=== PATIENT | male | born 1940 | race American Indian/Alaskan Native ===

== ENCOUNTER 2020-08-20 16:36 | Observation (INO) | payer MEDICARE ==
--- NOTE | 2020-08-20 19:40 | Emergency Department Report ---
HPI - General Chief Complaint: Altered Mental Status Time Seen by Provider: 08/20/20 19:14 - HPI HPI: This is a 79-year-old -[place] male presents to the emergency department via EMS from his [facility] with a complaint of abnormal behavior. Per EMS, the patient was apparently given a breathing treatment for some signs of shortness of breath and he became very confused afterwards. The paperwork sent by the facility states that he has a history of vascular dementia without behavioral disturbance, previous CVA with left-sided hemiparesis, [id number] diabetes, COPD, peripheral vascular disease, chronic kidney disease not on hemodialysis, hypertension, BPH, anemia and gout. The patient himself is currently confused, AAO x0, and is unable to provide any history or prearrival information. ED Past Medical Hx - Past Medical History Hx Hypertension: Yes Hx CVA: Yes Hx Diabetes: Yes Hx Arthritis: Yes Hx Asthma: Yes Hx Dementia: Yes - Surgical History Additional Surgical History: Pt. does not recall - Social History Smoking Status: Never Smoker - Medications Home Medications: Home Medications Medication Instructions Recorded Confirmed Last Taken Type Simvastatin 20 mg PO QHS 04/23/13 06/19/16 04/22/13 History Clopidogrel [Plavix] 75 mg PO QDAY #30 tablet NS 05/23/13 06/19/16 Unknown Rx donepeziL [Aricept] 10 mg PO QDAY 02/28/16 06/19/16 Unknown History cloNIDine [Catapres] 0.1 mg PO Q12HR #60 tablet 03/01/16 06/19/16 Unknown Rx hydrALAZINE [Apresoline TAB] 100 mg PO Q8H #90 tab 03/01/16 06/19/16 Unknown Rx Benzonatate [Tessalon Perles] 100 mg PO Q6HR PRN #3 capsule 06/25/16 Unknown Rx Ipratropium/Albuterol Sulfate 1 ampul IH Q6HRT ampul.neb 06/25/16 Unknown Rx [DUONEB *Not for PRN Use*] amLODIPine 10 mg PO DAILY tablet 06/25/16 Unknown Rx ED Review of Systems ROS: Stated complaint: ABNORMAL BEHAVIOR/HYACINTH Other details as noted in HPI Comment: Unobtainable due to pts medical conditions Physical Exam - Physical Exam Vital Signs: Vital Signs 08/20/20 18:57 Temperature 97.3 F L Pulse Rate 96 H Respiratory 13 Rate Blood Pressure 167/93 [Left] O2 Sat by Pulse 99 Oximetry Physical Exam: GENERAL: The patient is well-developed. HENT: Normocephalic. Atraumatic. Patient has moist mucous membranes. EYES: Extraocular motions are intact. Pupils equal reactive to light bilaterally. NECK: Supple. Trachea is midline. CHEST/LUNGS: Clear to auscultation. There is no respiratory distress noted. HEART/CARDIOVASCULAR: Regular. There is no tachycardia. There is no murmur. ABDOMEN: Abdomen is soft, nontender. Patient has normal bowel sounds. There is no abdominal distention. SKIN: Skin is warm and dry. NEURO: The patient is awake but confused. Follows some commands. Withdraws to painful stimuli. MUSCULOSKELETAL: There is no tenderness or deformity. ED Course Vital Signs 08/20/20 18:57 Temperature 97.3 F L Pulse Rate 96 H Respiratory 13 Rate Blood Pressure 167/93 [Left] O2 Sat by Pulse 99 Oximetry ED Medical Decision Making - Lab Data Result diagrams: 08/20/20 19:56 08/20/20 19:56 Lab Results 08/20/20 08/20/20 08/20/20 Range/Units 19:56 19:56 19:56 WBC 11.8 H (4.5-11.0) K/mm3 RBC 4.08 (3.65-5.03) M/mm3 Hgb 12.1 (11.8-15.2) gm/dl Hct 37.3 (35.5-45.6) % MCV 91 (84-94) fl MCH 30 (28-32) pg MCHC 32 (32-34) % RDW 16.8 H (13.2-15.2) % Plt Count 427 (140-440) K/mm3 Lymph % (Auto) 12.8 L (13.4-35.0) % [place] % (Auto) 4.3 (0.0-7.3) % Eos % (Auto) 0.0 (0.0-4.3) % Baso % (Auto) 0.2 (0.0-1.8) % Lymph # (Auto) 1.5 (1.2-5.4) K/mm3 [place] # (Auto) 0.5 (0.0-0.8) K/mm3 Eos # (Auto) 0.0 (0.0-0.4) K/mm3 Baso # (Auto) 0.0 (0.0-0.1) K/mm3 Seg Neutrophils % 82.7 H (40.0-70.0) % Seg Neutrophils # 9.8 H (1.8-7.7) K/mm3 PT 13.4 (12.2-14.9) Sec. INR 1.03 (0.87-1.13) APTT 29.2 (24.2-36.6) Sec. Sodium 138 (137-145) mmol/L Potassium 5.5 H (3.6-5.0) mmol/L Chloride 104.6 (98-107) mmol/L Carbon Dioxide 17 L (22-30) mmol/L Anion Gap 22 mmol/L BUN 96 H (9-20) mg/dL Creatinine 3.4 H (0.8-1.3) mg/dL Estimated GFR 21 ml/min BUN/Creatinine Ratio 28 % Glucose 155 H (75-100) mg/dL Calcium 9.4 (8.4-10.2) mg/dL Total Bilirubin 0.20 (0.1-1.2) mg/dL AST 12 (5-40) units/L ALT 21 (7-56) units/L Alkaline Phosphatase 50 (35-129) units/L Ammonia (25-60) umol/L Troponin T 0.064 H (0.00-0.029) ng/mL Total Protein 7.4 (6.3-8.2) g/dL Albumin 3.8 L (3.9-5) g/dL Albumin/Globulin Ratio 1.1 % Triglycerides 60 (2-149) mg/dL Cholesterol 185 (50-199) mg/dL LDL Cholesterol Direct 116 (50-130) mg/dL HDL Cholesterol 61 H (40-59) mg/dL Cholesterol/HDL Ratio 3.03 % TSH (0.270-4.200) mlU/mL Plasma/Serum Alcohol (0-0.07) % 08/20/20 08/20/20 08/20/20 Range/Units 19:56 19:56 19:56 WBC (4.5-11.0) K/mm3 RBC (3.65-5.03) M/mm3 Hgb (11.8-15.2) gm/dl Hct (35.5-45.6) % MCV (84-94) fl MCH (28-32) pg MCHC (32-34) % RDW (13.2-15.2) % Plt Count (140-440) K/mm3 Lymph % (Auto) (13.4-35.0) % [place] % (Auto) (0.0-7.3) % Eos % (Auto) (0.0-4.3) % Baso % (Auto) (0.0-1.8) % Lymph # (Auto) (1.2-5.4) K/mm3 [place] # (Auto) (0.0-0.8) K/mm3 Eos # (Auto) (0.0-0.4) K/mm3 Baso # (Auto) (0.0-0.1) K/mm3 Seg Neutrophils % (40.0-70.0) % Seg Neutrophils # (1.8-7.7) K/mm3 PT (12.2-14.9) Sec. INR (0.87-1.13) APTT (24.2-36.6) Sec. Sodium (137-145) mmol/L Potassium (3.6-5.0) mmol/L Chloride (98-107) mmol/L Carbon Dioxide (22-30) mmol/L Anion Gap mmol/L BUN (9-20) mg/dL Creatinine (0.8-1.3) mg/dL Estimated GFR ml/min BUN/Creatinine Ratio % Glucose (75-100) mg/dL Calcium (8.4-10.2) mg/dL Total Bilirubin (0.1-1.2) mg/dL AST (5-40) units/L ALT (7-56) units/L Alkaline Phosphatase (35-129) units/L Ammonia 47.0 (25-60) umol/L Troponin T (0.00-0.029) ng/mL Total Protein (6.3-8.2) g/dL Albumin (3.9-5) g/dL Albumin/Globulin Ratio % Triglycerides (2-149) mg/dL Cholesterol (50-199) mg/dL LDL Cholesterol Direct (50-130) mg/dL HDL Cholesterol (40-59) mg/dL Cholesterol/HDL Ratio % TSH 1.250 (0.270-4.200) mlU/mL Plasma/Serum Alcohol < 0.01 (0-0.07) % - Radiology Data Radiology results: report reviewed, image reviewed interpreted by me: Chest x-ray does not show any acute process. There are no pleural effusions, obvious pneumonia and there is no pneumothorax. No significant cardiomegaly. NONENHANCED CT SCAN OF THE HEAD: INDICATION / CLINICAL INFORMATION: 79 years Male; Altered mental status. TECHNIQUE: Routine CT head without contrast. All CT scans at this location are performed using CT dose reduction for ALARA by means of automated exposure control. COMPARISON: CT scan of the head from 06/21/2016 and MR scan of the brain from 06/24/2016 FINDINGS: BRAIN / INTRACRANIAL CONTENTS: No acute hemorrhage, mass effect, midline shift, hydrocephalus, or acute, large territorial infarct. Volume loss in the hippocampi bilaterally and in the cuneus bilaterally. Moderate cortical involution with Periventricular low attenuation areas due to chronic small vessel disease CRANIOCERVICAL JUNCTION: No significant abnormality. ORBITS: No significant abnormality of visualized orbits. SINUSES / MASTOIDS: Mucosal disease in the left the ethmoid air cells ADDITIONAL FINDINGS: None. IMPRESSION: No acute focal parenchymal lesion in the brain Significant volume loss in the hippocampi and cuneus bilaterally - Medical Decision Making This patient presented from his senior living facility with the complaint of altered mental status after having a breathing treatment. Apparently the patient received a breathing treatment secondary to shortness of breath. However, since arrival to the emergency department, the patient does not appear short of breath or in any respiratory distress. He does have some history of vascular dementia that is listed as being without behavioral disturbances. I do not know what the patient's baseline mental status is, but he is AAO x0 on my initial examination. He will follow some commands but at times he is also a gitated and/or erratic. A CT scan of the head without contrast was performed that did not show any large territorial infarct, hemorrhage, or any other acute process. Chest x-ray does not show any pneumonia, pleural effusions, pneumothorax, focal consolidation, or any other acute process. The patient's labs shows some hyperkalemia with a potassium of 5.5, for which the patient was given a dose of Kayexalate. He has renal insufficiency consistent with his chronic kidney disease. The patient has a urinary tract infection, which combined with his vascular dementia, may be the reason for his behavioral disturbances and/or altered mental status. A urine culture has been sent to the patient has been given IV antibiotics. He will be admitted to the hospital for further evaluation and treatment was accepted for admission by the hospitalist, Dr. Monsivais. Critical Care Time: No Critical care attestation.: If time is entered above; I have spent that time in minutes in the direct care of this critically ill patient, excluding procedure time. ED Disposition Clinical Impression: Hyperkalemia Altered mental status Qualifiers: Altered mental status type: unspecified Qualified Code(s): R41.82 - Altered mental status, unspecified Hypertension Qualifiers: Hypertension type: essential hypertension Qualified Code(s): I10 - Essential (primary) hypertension Chronic kidney disease (CKD), stage III (moderate) Qualifiers: Chronic kidney disease stage 3 subtype: stage 3b (GFR 30-44) Qualified Code(s): N18.32 - Chronic kidney disease, stage 3b UTI (urinary tract infection) Qualifiers: Urinary tract infection type: acute cystitis Hematuria presence: without hematuria Qualified Code(s): N30.00 - Acute cystitis without hematuria Disposition: 09 OP ADMIT IP TO THIS HOSP Is pt being admited?: Yes Condition: Serious Time of Disposition: 21:49
[2020-08-20] MEDS ORDERED: ZIPRASIDONE MESYLATE 20 MG VIAL IM ONE (20:24)
--- NOTE | 2020-08-20 20:30 | XRay Report ---
CHEST 1 VIEW INDICATION: Altered mental status COMPARISON: None FINDINGS: SUPPORT DEVICES: None. HEART / MEDIASTINUM: No significant abnormality. LUNGS / PLEURA: No significant pulmonary or pleural abnormality. No pneumothorax. ADDITIONAL FINDINGS: IMPRESSION: 1. No acute cardiopulmonary disease Signer Name: Keshawn Pyle MD Signed: 08/20/2020 8:26 PM Workstation Name: [id number]
[2020-08-20 20:32] LABS: Basophils % (Auto) 0.2 % (0.0-1.8); Hematocrit 37.3 % (35.5-45.6); Hemoglobin 12.1 gm/dl (11.8-15.2); Lymphocytes # (Auto) 1.5 K/mm3 (1.2-5.4); Lymphocytes % (Auto) 12.8 % (13.4-35.0); Mean Corpuscular HGB Conc 32 % (32-34); Mean Corpuscular Volume 91 fl (84-94); Monocytes # (Auto) 0.5 K/mm3 (0.0-0.8); Monocytes % (Auto) 4.3 % (0.0-7.3); Platelet Count 427 K/mm3 (140-440); Red Blood Count 4.08 M/mm3 (3.65-5.03); Red Cell Distribution Width 16.8 % (13.2-15.2)
[2020-08-20 20:40] LABS: INR 1.03 (0.87-1.13)
[2020-08-20 20:41] LABS: Partial Thromboplastin Time 29.2 Sec. (24.2-36.6)
[2020-08-20 20:53] LABS: Albumin 3.8 g/dL (3.9-5); Calcium 9.4 mg/dL (8.4-10.2)
--- NOTE | 2020-08-20 21:13 | Cat Scan Report ---
NONENHANCED CT SCAN OF THE HEAD: INDICATION / CLINICAL INFORMATION: 79 years Male; Altered mental status. TECHNIQUE: Routine CT head without contrast. All CT scans at this location are performed using CT dos e reduction for ALARA by means of automated exposure control. COMPARISON: CT scan of the head from 06/21/2016 and MR scan of the brain from 06/24/2016 FINDINGS: BRAIN / INTRACRANIAL CONTENTS: No acute hemorrhage, mass effect, midline shift, hydrocephalus, or acu te, large territorial infarct. Volume loss in the hippocampi bilaterally and in the cuneus bilaterall y. Moderate cortical involution with Periventricular low attenuation areas due to chronic small vesse l disease CRANIOCERVICAL JUNCTION: No significant abnormality. ORBITS: No significant abnormality of visualized orbits. SINUSES / MASTOIDS: Mucosal disease in the left the ethmoid air cells ADDITIONAL FINDINGS: None. IMPRESSION: No acute focal parenchymal lesion in the brain Significant volume loss in the hippocampi and cuneus bilaterally Signer Name: Carlos Callahan MD Signed: 08/20/2020 9:08 PM Workstation Name: [id number]
[2020-08-20] MEDS ORDERED: SODIUM POLYSTYRENE 15 GM/60 ML ORAL LIQD PO ONE (21:28)
[2020-08-20 21:34] LABS: Chol/HDL Ratio 3.03 %
[2020-08-20] MEDS ORDERED: ACETAMINOPHEN 325 MG TAB PO PRN ×2 (23:26)
[2020-08-20] MEDS ORDERED: MORPHINE 2 MG/1 ML INJ IV PRN (23:26)
[2020-08-20] MEDS ORDERED: DEXTROSE 50% IN WATER (25GM) 50 ML SYRINGE IV PRN (23:26)
[2020-08-20] MEDS ORDERED: ONDANSETRON 4 MG/2 ML INJ IV PRN (23:26)
[2020-08-20] MEDS ORDERED: MAGNESIUM HYDROXIDE (MOM) ORAL LIQD UDC PO PRN (23:26)
--- NOTE | 2020-08-20 23:39 | History and Physical Report ---
History of Present Illness Date of examination: 08/20/20 Date of admission: 08/20/20 21:49 Chief complaint: Altered mental status History of present illness: 79-year-old -Filipino male with known history of dementia, diabetes mellitus, hypertension, history of stroke in the past who is a resident of [facility] brought into the emergency room today for changes in mental status. Patient was said to be getting some breathing treatment because of shortness of breath earlier today it thereafter became confused. Most of the history was gotten from the ER staff as patient is confused and cannot give a coherent history. Work-up in the emergency room today potassium was found to be 5.5 on the chemistry, EKG, chest x-ray, CT scan of the head were unremarkable. Patient however had elevated troponin of 0.064. Urinalysis revealed UTI. Patient has been admitted for changes in altered mental status, UTI and hyperkalemia. Past History Past Medical History: arthritis, diabetes, hypertension, hyperlipidemia, renal failure, stroke, other (Dementia) Past Surgical History: No surgical history Social history: no significant social history Family history: no significant family history Medications and Allergies Allergies Allergy/AdvReac Type Severity Reaction Status Date / Time No Known Allergies Allergy Unverified 04/23/13 16:35 Home Medications Medication Instructions Recorded Confirmed Last Taken Type Simvastatin 20 mg PO QHS 04/23/13 06/19/16 04/22/13 History Clopidogrel [Plavix] 75 mg PO QDAY #30 tablet NS 05/23/13 06/19/16 Unknown Rx donepeziL [Aricept] 10 mg PO QDAY 02/28/16 06/19/16 Unknown History cloNIDine [Catapres] 0.1 mg PO Q12HR #60 tablet 03/01/16 06/19/16 Unknown Rx hydrALAZINE [Apresoline TAB] 100 mg PO Q8H #90 tab 03/01/16 06/19/16 Unknown Rx Benzonatate [Tessalon Perles] 100 mg PO Q6HR PRN #3 capsule 06/25/16 Unknown Rx Ipratropium/Albuterol Sulfate 1 ampul IH Q6HRT ampul.neb 06/25/16 Unknown Rx [DUONEB *Not for PRN Use*] amLODIPine 10 mg PO DAILY tablet 06/25/16 Unknown Rx Active Meds: Active Medications Acetaminophen (Acetaminophen 325 Mg Tab) 650 mg PO Q4H PRN PRN Reason: Pain MILD(1-3)/Fever >100.5/CARRILLO Review of Systems ROS unobtainable: due to mental status Exam - Constitutional Vitals: Temp Pulse Resp BP Pulse Ox 97.3 F L 85 12 151/109 98 08/20/20 19:40 08/20/20 23:00 08/20/20 22:46 08/20/20 22:46 08/20/20 22:46 General appearance: Present: no acute distress, well-nourished - EENT Eyes: Present: PERRL, EOM intact. Absent: scleral icterus ENT: hearing intact, clear oral mucosa, dentition normal - Neck Neck: Present: supple, normal ROM - Respiratory Respiratory effort: normal Respiratory: bilateral: CTA - Cardiovascular Rhythm: regular Heart Sounds: Present: S1 & S2. Absent: gallop, systolic murmur, diastolic murmur, rub - Extremities Extremities: no ischemia, pulses intact, pulses symmetrical, No edema, normal temperature, normal color, Full ROM Peripheral Pulses: within normal limits - Abdominal General gastrointestinal: Present: soft, non-tender, non-distended, normal bowel sounds. Absent: mass - Integumentary Integumentary: Present: clear, warm, dry. Absent: rash - Musculoskeletal Musculoskeletal: strength equal bilaterally - Psychiatric Psychiatric: cooperative - Neurologic Neurologic: CNII-XII intact, no focal deficits, moves all extremities HEART Score - HEART Score Troponin: Troponin T 0.064 ng/mL (0.00-0.029) H 08/20/20 19:56 Results - Labs CBC & Chem 7: 08/21/20 01:06 08/21/20 01:06 Labs: Abnormal lab results 08/20/20 08/20/20 Range/Units 19:56 19:56 WBC 11.8 H (4.5-11.0) K/mm3 RDW 16.8 H (13.2-15.2) % Lymph % (Auto) 12.8 L (13.4-35.0) % Seg Neutrophils % 82.7 H (40.0-70.0) % Seg Neutrophils # 9.8 H (1.8-7.7) K/mm3 Potassium 5.5 H (3.6-5.0) mmol/L Carbon Dioxide 17 L (22-30) mmol/L BUN 96 H (9-20) mg/dL Creatinine 3.4 H (0.8-1.3) mg/dL Glucose 155 H (75-100) mg/dL Troponin T 0.064 H (0.00-0.029) ng/mL Albumin 3.8 L (3.9-5) g/dL HDL Cholesterol 61 H (40-59) mg/dL Assessment and Plan - Patient Problems (1) Altered mental status Current Visit: Yes Status: Acute Qualifiers: Altered mental status type: unspecified Qualified Code(s): R41.82 - Altered mental status, unspecified Plan to address problem: Possibly secondary to UTI however patient has an underlying history of dementia. Will monitor mental status. (2) Hyperkalemia Current Visit: Yes Status: Acute Plan to address problem: She has had Kayexalate. Will monitor potassium level. (3) Chronic kidney disease (CKD), stage III (moderate) Current Visit: Yes Status: Chronic Qualifiers: Chronic kidney disease stage 3 subtype: stage 3b (GFR 30-44) Qualified Code(s): N18.32 - Chronic kidney disease, stage 3b Plan to address problem: Consult placed to nephrology for follow-up. (4) HTN (hypertension) Current Visit: Yes Status: Chronic Qualifiers: Hypertension type: essential hypertension Qualified Code(s): I10 - Essential (primary) hypertension Plan to address problem: We will resume routine home medications and monitor vital signs closely. (5) Vascular dementia Current Visit: No Status: Chronic Plan to address problem: We will resume routine medications. (6) Elevated troponin Current Visit: Yes Status: Acute Plan to address problem: Possibly secondary to the chronic kidney disease. (7) UTI (urinary tract infection) Current Visit: Yes Status: Acute Qualifiers: Urinary tract infection type: acute cystitis Hematuria presence: without hematuria Qualified Code(s): N30.00 - Acute cystitis without hematuria Plan to address problem: Patient placed on empiric IV antibiotics. (8) DVT prophylaxis Current Visit: Yes Status: Acute Plan to address problem: Patient placed on subcutaneous heparin. (9) Full code status Current Visit: Yes Status: Acute Plan to address problem: Patient is a full code.
[2020-08-20 23:58] LABS: Amphetamine Screen,Urine PRESUMPTIVE NEGATIVE; Bacteria,Urine 2+ /HPF (Negative); Benzodiazepines Screen,Urine PRESUMPTIVE NEGATIVE; Bilirubin,Urine NEG (Negative); Blood,Urine LG (Negative); Cannabinoid Screen,Urine PRESUMPTIVE NEGATIVE; Cocaine Screen,Urine PRESUMPTIVE NEGATIVE; Color,Urine Yellow (Yellow); Methadone Screen,Urine PRESUMPTIVE NEGATIVE; Mucus,Urine FEW /HPF; Opiate Screen,Urine PRESUMPTIVE NEGATIVE; Urobilinogen,Urine < 2.0 mg/dL (<2.0)
[2020-08-21] MEDS ORDERED: cefTRIAXone/NS 1 GM/50 ML 1 GM/50 ML BAG IV ONE (00:07)
[2020-08-21 02:09] LABS: Basophils % (Auto) 0.1 % (0.0-1.8); Hematocrit 35.9 % (35.5-45.6); Hemoglobin 11.5 gm/dl (11.8-15.2); Lymphocytes # (Auto) 1.7 K/mm3 (1.2-5.4); Lymphocytes % (Auto) 11.6 % (13.4-35.0); Mean Corpuscular HGB Conc 32 % (32-34); Mean Corpuscular Volume 91 fl (84-94); Monocytes # (Auto) 1.1 K/mm3 (0.0-0.8); Monocytes % (Auto) 7.5 % (0.0-7.3); Platelet Count 383 K/mm3 (140-440); Red Blood Count 3.95 M/mm3 (3.65-5.03); Red Cell Distribution Width 17.2 % (13.2-15.2)
[2020-08-21 02:27] LABS: Calcium 9.4 mg/dL (8.4-10.2)
[2020-08-21] MEDS: HEPARIN 5,000 UNIT/1 ML VIAL SUB-Q SCH ×3 (05:28→21:30)
[2020-08-21] MEDS ORDERED: INSULIN LISPRO 100 UNIT/ML VIAL 3 mL SUB-Q SCH (07:30)
[2020-08-21] MEDS ORDERED: SODIUM POLYSTYRENE 15 GM/60 ML ORAL LIQD PO ONE (07:42)
[2020-08-21] MEDS: INSULIN LISPRO 100 UNIT/ML VIAL 3 mL SUB-Q SCH ×4 (08:03→21:30)
[2020-08-21 08:32] LABS: Basophils % (Auto) 0.1 % (0.0-1.8); Eosinophils % (Auto) 0.1 % (0.0-4.3); Hematocrit 35.3 % (35.5-45.6); Hemoglobin 11.4 gm/dl (11.8-15.2); Lymphocytes # (Auto) 1.7 K/mm3 (1.2-5.4); Lymphocytes % (Auto) 11.2 % (13.4-35.0); Mean Corpuscular HGB Conc 32 % (32-34); Mean Corpuscular Volume 89 fl (84-94); Monocytes # (Auto) 1.3 K/mm3 (0.0-0.8); Platelet Count 410 K/mm3 (140-440); Red Blood Count 3.96 M/mm3 (3.65-5.03); Red Cell Distribution Width 17.3 % (13.2-15.2)
[2020-08-21 08:45] LABS: INR 1.05 (0.87-1.13)
[2020-08-21 09:00] LABS: Calcium 9.1 mg/dL (8.4-10.2)
[2020-08-21] MEDS ORDERED: PATIROMER CALCIUM SORBITEX 8.4 GM PO SCH (09:00)
[2020-08-21] MEDS ORDERED: SODIUM POLYSTYRENE 15 GM/60 ML ORAL LIQD PO SCH (10:00)
[2020-08-21] MEDS: SODIUM CHLORIDE 0.9% 1000 ML 1,000 ML IV SCH ×2 (10:27→21:30)
[2020-08-21] MEDS: cefTRIAXone/NS 1 GM/50 ML 1 GM/50 ML BAG IV SCH (10:28)
--- NOTE | 2020-08-21 13:18 | Consultation ---
History of Present Illness - Reason for Consult acute renal failure - History of Present Illness Pleasant 79-year-old -Ang[place] male, with a history of vascular dementia, hypertension, diabetes, who is [facility] resident, presented to the emergency room department secondary to worsening mental status. Nephrology is consulted this time for acute kidney injury and hyperkalemia noted on initial laboratory findings. His urinalysis was concerning for underlying urinary tract infection which can likely be causing his aforementioned mentation changes. However he does have a history of dementia at baseline. He is not a good historian and much of the history was obtained through reviewing the records as well as discussing with medical staff. Past History Past Medical History: arthritis, diabetes, hypertension, hyperlipidemia, renal failure, stroke, other (Dementia) Past Surgical History: No surgical history Social history: no significant social history Family history: no significant family history Medications and Allergies Allergies Allergy/AdvReac Type Severity Reaction Status Date / Time No Known Allergies Allergy Unverified 04/23/13 16:35 Home Medications Medication Instructions Recorded Confirmed Last Taken Type Simvastatin 20 mg PO QHS 04/23/13 06/19/16 04/22/13 History Clopidogrel [Plavix] 75 mg PO QDAY #30 tablet NS 05/23/13 06/19/16 Unknown Rx donepeziL [Aricept] 10 mg PO QDAY 02/28/16 06/19/16 Unknown History cloNIDine [Catapres] 0.1 mg PO Q12HR #60 tablet 03/01/16 06/19/16 Unknown Rx hydrALAZINE [Apresoline TAB] 100 mg PO Q8H #90 tab 03/01/16 06/19/16 Unknown Rx Benzonatate [Tessalon Perles] 100 mg PO Q6HR PRN #3 capsule 06/25/16 Unknown Rx Ipratropium/Albuterol Sulfate 1 ampul IH Q6HRT ampul.neb 06/25/16 Unknown Rx [DUONEB *Not for PRN Use*] amLODIPine 10 mg PO DAILY tablet 06/25/16 Unknown Rx Active Meds: Active Medications Acetaminophen (Acetaminophen 325 Mg Tab) 650 mg PO Q4H PRN PRN Reason: Pain MILD(1-3)/Fever >100.5/CARRILLO Dextrose (Dextrose 50% In Water (25gm) 50 Ml Syringe) 0 ml IV Q30MIN PRN; Protocol PRN Reason: Hypoglycemia Heparin Sodium (Porcine) (Heparin 5,000 Unit/1 Ml Vial) 5,000 unit SUB-Q Q8HR [facility] Last Admin: 08/21/20 13:08 Dose: 5,000 unit Documented by: Ceftriaxone Sodium (Rocephin/Ns 1 Gm/50 Ml) 1 gm in 50 mls @ 100 mls/hr IV Q24HR [facility]; Protocol Last Admin: 08/21/20 10:28 Dose: 100 mls/hr Documented by: Sodium Chloride (Nacl 0.9% 1000 Ml) 1,000 mls @ 100 mls/hr IV DIRECT [facility] Last Admin: 08/21/20 10:27 Dose: 100 mls/hr Documented by: Insulin Human Lispro (Insulin Lispro 100 Unit/Ml Vial 3 Ml) 0 unit SUB-Q ACHS [facility]; Protocol Last Admin: 08/21/20 11:27 Dose: Not Given Documented by: Magnesium Hydroxide (Magnesium Hydroxide (Mom) Oral Liqd Udc) 30 ml PO Q4H PRN PRN Reason: Constipation Morphine Sulfate (Morphine 2 Mg/1 Ml Inj) 2 mg IV Q4H PRN PRN Reason: Pain, Moderate (4-6) Ondansetron HCl (Ondansetron 4 Mg/2 Ml Inj) 4 mg IV Q8H PRN PRN Reason: Nausea And Vomiting Sodium Chloride (Sodium Chloride 0.9% 10 Ml Flush Syringe) 10 ml IV BID [facility] Last Admin: 08/21/20 11:23 Dose: 10 ml Documented by: Sodium Chloride (Sodium Chloride 0.9% 10 Ml Flush Syringe) 10 ml IV PRN PRN PRN Reason: LINE FLUSH Review of Systems ROS unobtainable: due to mental status Exam - Vital Signs Vital signs: Vital Signs Pulse Ox 98 08/20/20 18:48 - General Appearance General appearance: appears stated age, chronically ill EENT: ATNC Neck: Present: neck supple Respiratory: Clear to Ascultation Heart: regular Gastrointestinal: Present: normal Integumentary: no rash Neurologic: confused Musculoskeletal: Present: deferred Psychiatric: cooperative Results - Lab Results 08/21/20 07:51 08/21/20 07:51 Most recent lab results Calcium 9.1 mg/dL (8.4-10.2) 08/21/20 07:51 Assessment and Plan - Patient Problems (1) [id number] kidney injury Current Visit: Yes Status: Acute Plan to address problem: Patient likely has an acute on chronic kidney injury at this time secondary to underlying urinary tract infection. We will start on gentle IV fluids at 100 cc an hour of normal saline. Please ensure that antibiotics are dosed appropriate for his renal function. Please avoid all nephrotoxins and maintain mean arterial pressures above 65 mmHg. We will obtain a renal ultrasound along with urine electrolyte indices for further evaluation. (2) Hypertensive chronic kidney disease with stage 1 through stage 4 chronic kidney disease, or unspecified chronic kidney disease Current Visit: Yes Status: Acute Plan to address problem: Monitor on current regimen. (3) Type 2 diabetes mellitus with diabetic chronic kidney disease Current Visit: Yes Status: Acute Plan to address problem: Diabetes management primary attending (4) Hyperkalemia Current Visit: Yes Status: Acute Plan to address problem: Patient given dose of Kayexalate this morning with repeat labs noted to be showing improvement. Anticipate further improvement of potassium levels with increased distal sodium delivery via IV fluids. (5) UTI (urinary tract infection) Current Visit: Yes Status: Acute Qualifiers: Urinary tract infection type: acute cystitis Hematuria presence: without hematuria Qualified Code(s): N30.00 - Acute cystitis without hematuria Plan to address problem: Please ensure that antibiotics are dosed appropriate for his decreased renal function.
--- NOTE | 2020-08-21 14:21 | Progress Note ---
Assessment and Plan Assessment and plan: --- Acute metabolic encephalopathy Current Visit: Yes Status: Acute Qualifiers: Altered mental status type: unspecified Qualified Code(s): R41.82 - Altered mental status, unspecified Plan to address problem: Patient has a history of dementia and now comes in with confusion. CT head negative for any stroke Found to have UTI and is now on antibiotics --- Urinary tract infection Current Visit: No Status: Chronic Plan to address problem: Continue IV antibiotics Urine culture pending --Chronic kidney disease (CKD), stage III (moderate) Current Visit: Yes Status: Chronic Qualifiers: Chronic kidney disease stage 3 subtype: stage 3b (GFR 30-44) Qualified Code(s): N18.32 - Chronic kidney disease, stage 3b Plan to address problem: Consult placed to nephrology for follow-up. ---HTN (hypertension) Current Visit: Yes Status: Chronic Qualifiers: Hypertension type: essential hypertension Qualified Code(s): I10 - Essential (primary) hypertension Plan to address problem: We will resume routine home medications and monitor vital signs closely. --Vascular dementia Current Visit: No Status: Chronic Plan to address problem: We will resume routine medications. --Elevated troponin Current Visit: Yes Status: Acute Plan to address problem: Possibly secondary to the chronic kidney disease. Denies any chest pain --- Possibly has Parkinson's disease as he has parkinsonian facies and tremors Current Visit: No Status: Chronic Plan to address problem: Needs neurology follow-up on discharge ---DVT prophylaxis Current Visit: Yes Status: Acute Plan to address problem: Patient placed on subcutaneous heparin. --Full code status Current Visit: Yes Status: Acute Plan to address problem: Patient is a full code. History Interval history: Patient seen and examined at bedside He does not know why he is here. States he lives with spouse in [place] He is confused Labs reviewed Hospitalist Physical - Physical exam Narrative exam: VITAL SIGNS: Reviewed. GENERAL: Awake HEAD: No signs of head trauma. EYES: Pupils are equal. Extraocular motions intact. MOUTH: Oropharynx is normal. NECK: No adenopathy, no JVD. CHEST: Chest with diminished breath sounds bilaterally. No wheezes, rales, or rhonchi. CARDIAC: normal S1 and S2, without murmurs, gallops, or rubs. ABDOMEN: Soft, non tender and non distended. No rebound or guarding, and no masses palpated. Bowel Sounds normal. MUSCULOSKELETAL: No edema NEUROLOGIC EXAM: Awake but confused. Has intention tremor and expressionless face SKIN: No obvious lesions - Constitutional Vitals: Temp Pulse Resp BP Pulse Ox 98.4 F 87 20 150/87 97 08/21/20 08:09 08/21/20 08:09 08/21/20 08:09 08/21/20 08:09 08/21/20 12:02 HEART Score - HEART Score Troponin: Troponin T 0.076 ng/mL (0.00-0.029) H 08/21/20 07:51 Results - Labs CBC & Chem 7: 08/21/20 07:51 08/21/20 07:51 Labs: Laboratory Last Values WBC 14.9 K/mm3 (4.5-11.0) H 08/21/20 07:51 RBC 3.96 M/mm3 (3.65-5.03) 08/21/20 07:51 Hgb 11.4 gm/dl (11.8-15.2) L 08/21/20 07:51 Hct 35.3 % (35.5-45.6) L 08/21/20 07:51 MCV 89 fl (84-94) 08/21/20 07:51 MCH 29 pg (28-32) 08/21/20 07:51 MCHC 32 % (32-34) 08/21/20 07:51 RDW 17.3 % (13.2-15.2) H 08/21/20 07:51 Plt Count 410 K/mm3 (140-440) 08/21/20 07:51 Lymph % (Auto) 11.2 % (13.4-35.0) L 08/21/20 07:51 [place] % (Auto) 9.0 % (0.0-7.3) H 08/21/20 07:51 Eos % (Auto) 0.1 % (0.0-4.3) 08/21/20 07:51 Baso % (Auto) 0.1 % (0.0-1.8) 08/21/20 07:51 Lymph # (Auto) 1.7 K/mm3 (1.2-5.4) 08/21/20 07:51 [place] # (Auto) 1.3 K/mm3 (0.0-0.8) H 08/21/20 07:51 Eos # (Auto) 0.0 K/mm3 (0.0-0.4) 08/21/20 07:51 Baso # (Auto) 0.0 K/mm3 (0.0-0.1) 08/21/20 07:51 Seg Neutrophils % 79.6 % (40.0-70.0) H 08/21/20 07:51 Seg Neutrophils # 11.8 K/mm3 (1.8-7.7) H 08/21/20 07:51 PT 13.5 Sec. (12.2-14.9) 08/21/20 07:51 INR 1.05 (0.87-1.13) 08/21/20 07:51 APTT 29.2 Sec. (24.2-36.6) 08/20/20 19:56 Sodium 145 mmol/L (137-145) 08/21/20 07:51 Potassium 4.8 mmol/L (3.6-5.0) 08/21/20 07:51 Chloride 108.6 mmol/L (98-107) H 08/21/20 07:51 Carbon Dioxide 22 mmol/L (22-30) 08/21/20 07:51 Anion Gap 19 mmol/L 08/21/20 07:51 BUN 91 mg/dL (9-20) H 08/21/20 07:51 Creatinine 3.5 mg/dL (0.8-1.3) H 08/21/20 07:51 Estimated GFR 21 ml/min 08/21/20 07:51 BUN/Creatinine Ratio 26 % 08/21/20 07:51 Glucose 122 mg/dL (75-100) H 08/21/20 07:51 POC Glucose 112 mg/dL (70-105) H 08/21/20 11:25 Calcium 9.1 mg/dL (8.4-10.2) 08/21/20 07:51 Total Bilirubin 0.20 mg/dL (0.1-1.2) 08/20/20 19:56 AST 12 units/L (5-40) 08/20/20 19:56 ALT 21 units/L (7-56) 08/20/20 19:56 Alkaline Phosphatase 50 units/L (35-129) 08/20/20 19:56 Ammonia 47.0 umol/L (25-60) 08/20/20 19:56 Troponin T 0.076 ng/mL (0.00-0.029) H 08/21/20 07:51 Total Protein 7.4 g/dL (6.3-8.2) 08/20/20 19:56 Albumin 3.8 g/dL (3.9-5) L 08/20/20 19:56 Albumin/Globulin Ratio 1.1 % 08/20/20 19:56 Triglycerides 60 mg/dL (2-149) 08/20/20 19:56 Cholesterol 185 mg/dL (50-199) 08/20/20 19:56 LDL Cholesterol Direct 116 mg/dL (50-130) 08/20/20 19:56 HDL Cholesterol 61 mg/dL (40-59) H 08/20/20 19:56 Cholesterol/HDL Ratio 3.03 % 08/20/20 19:56 TSH 1.250 mlU/mL (0.270-4.200) 08/20/20 19:56 Urine Color Yellow (Yellow) 08/20/20 23:25 Urine Turbidity Clear (Clear) 08/20/20 23:25 Urine pH 7.0 (5.0-7.0) 08/20/20 23:25 Ur Specific [place] 1.014 (1.003-1.030) 08/20/20 23:25 Urine Protein 100 mg/dl mg/dL (Negative) 08/20/20 23:25 Urine Glucose (UA) Neg mg/dL (Negative) 08/20/20 23:25 Urine Ketones Neg mg/dL (Negative) 08/20/20 23:25 Urine Blood Lg (Negative) 08/20/20 23:25 Urine Nitrite Neg (Negative) 08/20/20 23:25 Urine Bilirubin Neg (Negative) 08/20/20 23:25 Urine Urobilinogen < 2.0 mg/dL (<2.0) 08/20/20 23:25 Ur Leukocyte Esterase Lg (Negative) 08/20/20 23:25 Urine WBC (Auto) 52.0 /HPF (0.0-6.0) H 08/20/20 23:25 Urine RBC (Auto) 9.0 /HPF (0.0-6.0) 08/20/20 23:25 Urine Bacteria (Auto) 2+ /HPF (Negative) 08/20/20 23:25 Urine Mucus Few /HPF 08/20/20 23:25 Urine Yeast (Budding) Few /HPF 08/20/20 23:25 Urine Opiates Screen Presumptive negative 08/20/20 23:25 Urine Methadone Screen Presumptive negative 08/20/20 23:25 Ur Barbiturates Screen Presumptive negative 08/20/20 23:25 Ur Phencyclidine Scrn Presumptive negative 08/20/20 23:25 Ur Amphetamines Screen Presumptive negative 08/20/20 23:25 U Benzodiazepines Scrn Presumptive negative 08/20/20 23:25 Urine Cocaine Screen Presumptive negative 08/20/20 23:25 U Marijuana (THC) Screen Presumptive negative 08/20/20 23:25 Drugs of Abuse Note Disclamer 08/20/20 23:25 Plasma/Serum Alcohol < 0.01 % (0-0.07) 08/20/20 19:56 [place]/IV: Voiding Method Condom Catheter IV Catheter Type [Right INT / Saline Lock Antecubital] Active Medications - Current Medications Current Medications: Generic Name Dose Route Start Last Admin Trade Name Freq PRN Reason Stop Dose Admin Acetaminophen 650 mg 08/20/20 23:26 Acetaminophen 325 Mg Tab PO Q4H PRN Pain MILD(1-3)/Fever >100.5/CARRILLO Dextrose 0 ml 08/20/20 23:26 Dextrose 50% In Water (25gm) 50 Ml Syringe IV Q30MIN PRN Hypoglycemia Protocol Heparin Sodium (Porcine) 5,000 unit 08/21/20 06:00 08/21/20 13:08 Heparin 5,000 Unit/1 Ml Vial SUB-Q 5,000 unit Q8HR BROOKE Administration Ceftriaxone Sodium 1 gm in 50 mls @ 100 mls/hr 08/21/20 10:00 08/21/20 10:28 Rocephin/Ns 1 Gm/50 Ml IV 100 mls/hr Q24HR BROOKE Administration Protocol Sodium Chloride 1,000 mls @ 100 mls/hr 08/21/20 08:00 08/21/20 10:27 Nacl 0.9% 1000 Ml IV 100 mls/hr DIRECT BROOKE Administration Insulin Human Lispro 0 unit 08/21/20 07:30 08/21/20 11:27 Insulin Lispro 100 Unit/Ml Vial 3 Ml SUB-Q Not Given ACHS BROOKE Protocol Magnesium Hydroxide 30 ml 08/20/20 23:26 Magnesium Hydroxide (Mom) Oral Liqd Udc PO Q4H PRN Constipation Morphine Sulfate 2 mg 08/20/20 23:26 Morphine 2 Mg/1 Ml Inj IV Q4H PRN Pain, Moderate (4-6) Ondansetron HCl 4 mg 08/20/20 23:26 Ondansetron 4 Mg/2 Ml Inj IV Q8H PRN Nausea And Vomiting Sodium Chloride 10 ml 08/21/20 10:00 08/21/20 11:23 Sodium Chloride 0.9% 10 Ml Flush Syringe IV 10 ml BID BROOKE Administration Sodium Chloride 10 ml 08/20/20 23:26 Sodium Chloride 0.9% 10 Ml Flush Syringe IV PRN PRN LINE FLUSH Nutrition/Malnutrition Assess - Dietary Evaluation Nutrition/Malnutrition Findings: Nutrition Notes Start: 08/21/20 08:59 Freq: Status: Active Protocol: Document 08/21/20 08:59 (Rec: 08/21/20 09:03 [id number]) Nutrition Notes Need for Assessment generated from: MD Order,air conditioning technician Initial or Follow up Brief Note Current Diagnosis CKD(stage I-IV),Diabetes, Hypertension,Stroke Other Pertinent Diagnosis Dementia, UTI Current Diet Cardiac, Consistent CHO Pertinent Medications K 5.5 Subjective/Other Information MD order for diet education, RN screen for skin risk. Pt not approprite for diet education. No Ignacio Score noted. Nutrition Intervention Follow-Up By: 08/27/20 Additional Comments FU for diet education
[2020-08-21] MEDS ORDERED: BENZONATATE 100 MG CAP PO PRN (15:00)
[2020-08-21] MEDS: IPRATROPIUM/ALBUTEROL SULFATE 3 ML AMPUL.NEB IH SCH (21:05)
[2020-08-22] MEDS: IPRATROPIUM/ALBUTEROL SULFATE 3 ML AMPUL.NEB IH SCH ×4 (03:01→20:45)
[2020-08-22] MEDS: HEPARIN 5,000 UNIT/1 ML VIAL SUB-Q SCH ×3 (05:47→22:31)
[2020-08-22] MEDS: cefTRIAXone/NS 1 GM/50 ML 1 GM/50 ML BAG IV SCH (10:15)
[2020-08-22] MEDS: CLOPIDOGREL 75 MG TAB PO SCH (10:16)
[2020-08-22] MEDS: DONEPEZIL 10 MG TAB PO SCH (10:16)
[2020-08-22] MEDS: INSULIN LISPRO 100 UNIT/ML VIAL 3 mL SUB-Q SCH ×4 (10:16→22:31)
--- NOTE | 2020-08-22 13:46 | Progress Note ---
Subjective Date of service: 08/22/20 Interval history: Assessment and plan: --- Acute metabolic encephalopathy Current Visit: Yes Status: Acute Qualifiers: Altered mental status type: unspecified Qualified Code(s): R41.82 - Altered mental status, unspecified Plan to address problem: Improving She is alert and oriented and eating by herself and responds to questions and follows commands Patient has a history of dementia and now comes in with confusion. CT head negative for any stroke Found to have UTI and is now on antibiotics --- Urinary tract infection Current Visit: No Status: Chronic Plan to address problem: Continue IV antibiotic with Rocephin Urine cultures positive for gram-negative rods Isolation and sensitivity pending --Chronic kidney disease (CKD), stage III (moderate) Current Visit: Yes Status: Chronic Qualifiers: Chronic kidney disease stage 3 subtype: stage 3b (GFR 30-44) Qualified Code(s): N18.32 - Chronic kidney disease, stage 3b Plan to address problem: Nephrology note reviewed Patient refused renal ultrasound and this was canceled ---HTN (hypertension) Current Visit: Yes Status: Chronic Qualifiers: Hypertension type: essential hypertension Qualified Code(s): I10 - Essential (primary) hypertension Plan to address problem: Fair Continue present medications --Vascular dementia Current Visit: No Status: Chronic Plan to address problem: Continue routine medications. --Elevated troponin Current Visit: Yes Status: Acute Plan to address problem: Possibly secondary to the chronic kidney disease. Denies any chest pain ---DVT prophylaxis Current Visit: Yes Status: Acute Plan to address problem: Patient placed on subcutaneous heparin. --Full code status Current Visit: Yes Status: Acute Plan to address problem: Patient is a full code. History Interval history: Patient seen and examined at bedside He does not know why he is here. States he lives with spouse in [place] He is confused Labs reviewed 08/22/20 patient is awake and alert and follows simple commands and is oriented to her name, she is eating by herself ID and nephrology notes reviewed, lab results reviewed Hospitalist Physical - Physical exam Narrative exam: VITAL SIGNS: Reviewed. GENERAL: Awake HEAD: No signs of head trauma. EYES: Pupils are equal. Extraocular motions intact. NECK: No adenopathy, no JVD. CHEST: Chest with diminished breath sounds bilaterally. CARDIAC: Regular rate and rhythm ABDOMEN: Soft, obese ,non tender and non distended. No Extremities, wound on right fifth toe bilateral leg edema, dressing on right foot NEUROLOGIC EXAM: Awake and alert and moves all extremities SKIN: No obvious lesions, discoloration of the skin across the lower abdominal wall Objective - Constitutional Vitals: Vital Signs - 12hr 08/22/20 08/22/20 08/22/20 03:01 05:01 07:47 Temperature 98.3 F Pulse Rate 87 Pulse Rate [ 75 79 Anterior Bilateral Throughout] Respiratory 20 Rate Respiratory 20 18 Rate [Anterior Bilateral Throughout] Blood Pressure 153/79 Blood Pressure [Left] O2 Sat by Pulse 93 Oximetry 08/22/20 08/22/20 10:09 11:55 Temperature 98.0 F Pulse Rate 96 H 98 H Pulse Rate [ Anterior Bilateral Throughout] Respiratory 19 Rate Respiratory Rate [Anterior Bilateral Throughout] Blood Pressure 143/72 Blood Pressure 148/76 [Left] O2 Sat by Pulse 95 Oximetry - Labs CBC & Chem 7: 08/21/20 07:51 08/21/20 07:51 Labs: Abnormal lab results 08/21/20 08/22/20 08/22/20 Range/Units 21:20 08:04 11:57 POC Glucose 149 H 113 H 150 H (70-105) mg/dL HEART Score - HEART Score Troponin: Troponin T 0.076 ng/mL (0.00-0.029) H 08/21/20 07:51
--- NOTE | 2020-08-22 14:41 | Progress Note ---
Assessment and Plan - Patient Problems (1) [id number] kidney injury Current Visit: Yes Status: Acute Plan to address problem: Acute kidney injury superimposed on chronic kidney disease secondary to UTI with sepsis. Patient apparently refused renal ultrasound. No labs this morning. Continue gentle volume repletion. Follow-up electrolytes and renal function (2) Altered mental status Current Visit: Yes Status: Acute Qualifiers: Altered mental status type: unspecified Qualified Code(s): R41.82 - Altered mental status, unspecified Plan to address problem: Toxic/metabolic encephalopathy improving. 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 He denies any complaints. No chest pain, nausea or vomiting. No abdominal pain Objective - Exam Narrative Exam: Heavily built elderly -[place] male lying in bed in no acute distress HEENT: NCAT, pink oral mucous membrane Neck: Supple, no venous distention CVS: S1S2 RRR with no murmur, rub or gallop Chest: Clear to auscultation Abdomen: Protuberant, soft, nontender, no organomegaly, bowel sounds are present Extremities: No edema Neuro: Awake, alert no focal deficits - Vital Signs Vital signs: Vital Signs - 12hr 08/22/20 08/22/20 08/22/20 03:01 05:01 07:47 Temperature 98.3 F Pulse Rate 87 Pulse Rate [ 75 79 Anterior Bilateral Throughout] Respiratory 20 Rate Respiratory 20 18 Rate [Anterior Bilateral Throughout] Blood Pressure 153/79 Blood Pressure [Left] O2 Sat by Pulse 93 Oximetry 08/22/20 08/22/20 10:09 11:55 Temperature 98.0 F Pulse Rate 96 H 98 H Pulse Rate [ Anterior Bilateral Throughout] Respiratory 19 Rate Respiratory Rate [Anterior Bilateral Throughout] Blood Pressure 143/72 Blood Pressure 148/76 [Left] O2 Sat by Pulse 95 Oximetry - Lab 08/21/20 07:51 08/21/20 07:51 Most recent lab results Calcium 9.1 mg/dL (8.4-10.2) 08/21/20 07:51 Medications & Allergies - Medications Allergies/Adverse Reactions: Allergies No Known Allergies Allergy (Unverified 04/23/13 16:35) Home Medications: Home Medications Medication Instructions Recorded Confirmed Last Taken Type Clopidogrel [Plavix] 75 mg PO QDAY #30 tablet NS 05/23/13 08/21/20 Unknown Rx amLODIPine 10 mg PO DAILY tablet 06/25/16 08/21/20 Unknown Rx Budesonide [Pulmicort] 0.5 mg IH Q12HR 08/21/20 08/21/20 Unknown History Cetirizine HCl [Cetirizine 10mg 10 mg PO DAILY 08/21/20 08/21/20 Unknown History chew] Cholecalciferol Vit D3 [Vitamin D3 1,000 mg PO DAILY 08/21/20 08/21/20 Unknown History 1,000 UNIT TAB] Dexamethasone [Decadron] 6 mg PO DAILY 08/21/20 08/21/[address] [Depmichele Dr] 500 mg PO BID 08/21/20 08/21/20 Unknown History Finasteride [Proscar] 5 mg PO DAILY 08/21/20 08/21/20 Unknown History Hydralazine HCl 50 mg PO TID 08/21/20 08/21/20 Unknown History Memantine [Namenda] 5 mg PO BID 08/21/20 08/21/20 Unknown History Montelukast [Singulair] 10 mg PO QPM 08/21/20 08/21/20 Unknown History Multivit,Calc,Mins/Iron/Folic 1 each PO DAILY 08/21/20 08/21/20 Unknown History [Thera-M Caplet] Pravastatin [Pravachol] 40 mg PO HS 08/21/20 08/21/20 Unknown History QUEtiapine [SEROquel] 12.5 mg PO BID 08/21/20 08/21/20 Unknown History Salmeterol Xinafoate [Serevent 50 mcg IH BID 08/21/20 08/21/20 Unknown History Diskus] allopurinoL [Zyloprim] 100 mg PO DAILY 08/21/20 08/21/20 Unknown History cloNIDine [Catapres] 0.2 mg PO BID 08/21/20 08/21/20 Unknown History Active Medications: Generic Name Dose Route Start Last Admin Trade Name Freq PRN Reason Stop Dose Admin Acetaminophen 650 mg 08/20/20 23:26 Acetaminophen 325 Mg Tab PO Q4H PRN Pain MILD(1-3)/Fever >100.5/CARRILLO Albuterol/Ipratropium 1 ampul 08/21/20 20:00 08/22/20 14:25 Ipratropium/Albuterol Sulfate 3 Ml Ampul.Neb IH 1 ampul Q6HRT BROOKE Administration Benzonatate 100 mg 08/21/20 15:00 Benzonatate 100 Mg Cap PO Q6HR PRN Cough Clopidogrel Bisulfate 75 mg 08/22/20 10:00 08/22/20 10:16 Clopidogrel 75 Mg Tab PO 75 mg QDAY BROOKE Administration Dextrose 0 ml 08/20/20 23:26 Dextrose 50% In Water (25gm) 50 Ml Syringe IV Q30MIN PRN Hypoglycemia Protocol Donepezil HCl 10 mg 08/22/20 10:00 08/22/20 10:16 Donepezil 10 Mg Tab PO 10 mg QDAY BROOKE Administration Heparin Sodium (Porcine) 5,000 unit 08/21/20 06:00 08/22/20 05:47 Heparin 5,000 Unit/1 Ml Vial SUB-Q Not Given Q8HR BROOKE Ceftriaxone Sodium 1 gm in 50 mls @ 100 mls/hr 08/21/20 10:00 08/22/20 10:15 Rocephin/Ns 1 Gm/50 Ml IV 100 mls/hr Q24HR BROOKE Administration Protocol Sodium Chloride 1,000 mls @ 100 mls/hr 08/21/20 08:00 08/21/20 21:30 Nacl 0.9% 1000 Ml IV 100 mls/hr DIRECT BROOKE Administration Insulin Human Lispro 0 unit 08/21/20 07:30 08/22/20 12:17 Insulin Lispro 100 Unit/Ml Vial 3 Ml SUB-Q Not Given ACHS BROOKE Protocol Magnesium Hydroxide 30 ml 08/20/20 23:26 Magnesium Hydroxide (Mom) Oral Liqd Udc PO Q4H PRN Constipation Morphine Sulfate 2 mg 08/20/20 23:26 Morphine 2 Mg/1 Ml Inj IV Q4H PRN Pain, Moderate (4-6) Ondansetron HCl 4 mg 08/20/20 23:26 Ondansetron 4 Mg/2 Ml Inj IV Q8H PRN Nausea And Vomiting Sodium Chloride 10 ml 08/21/20 10:00 08/22/20 10:18 Sodium Chloride 0.9% 10 Ml Flush Syringe IV 10 ml BID BROOKE Administration Sodium Chloride 10 ml 08/20/20 23:26 Sodium Chloride 0.9% 10 Ml Flush Syringe IV PRN PRN LINE FLUSH
[2020-08-22] MEDS: SODIUM CHLORIDE 0.9% 1000 ML 1,000 ML IV SCH (15:01)
[2020-08-23 01:06] LABS: Basophils # (Auto) 0.1 K/mm3 (0.0-0.1); Basophils % (Auto) 0.4 % (0.0-1.8); Eosinophils # (Auto) 0.1 K/mm3 (0.0-0.4); Eosinophils % (Auto) 0.5 % (0.0-4.3); Hematocrit 32.9 % (35.5-45.6); Hemoglobin 10.7 gm/dl (11.8-15.2); Lymphocytes # (Auto) 2.3 K/mm3 (1.2-5.4); Lymphocytes % (Auto) 16.6 % (13.4-35.0); Mean Corpuscular HGB Conc 33 % (32-34); Mean Corpuscular Volume 89 fl (84-94); Monocytes # (Auto) 1.4 K/mm3 (0.0-0.8); Monocytes % (Auto) 10.6 % (0.0-7.3); Platelet Count 314 K/mm3 (140-440); Red Blood Count 3.69 M/mm3 (3.65-5.03)
[2020-08-23 01:58] LABS: Albumin 3.1 g/dL (3.9-5); Calcium 8.2 mg/dL (8.4-10.2)
[2020-08-23] MEDS: IPRATROPIUM/ALBUTEROL SULFATE 3 ML AMPUL.NEB IH SCH ×4 (05:38→19:17)
[2020-08-23] MEDS: HEPARIN 5,000 UNIT/1 ML VIAL SUB-Q SCH ×3 (05:46→22:47)
[2020-08-23] MEDS: hydrALAZINE 20 MG/1 ML INJ IV PRN (05:47)
[2020-08-23] MEDS: INSULIN LISPRO 100 UNIT/ML VIAL 3 mL SUB-Q SCH ×4 (07:36→22:48)
--- NOTE | 2020-08-23 10:20 | Progress Note ---
Assessment and Plan - Patient Problems (1) Uqiot-uw-[id number] kidney injury Current Visit: Yes Status: Acute Plan to address problem: Acute kidney injury superimposed on chronic kidney disease secondary to UTI with sepsis. Kidney function is now improving. Continue gentle volume repletion. Follow-up electrolytes and renal function (2) Altered mental status Current Visit: Yes Status: Acute Qualifiers: Altered mental status type: unspecified Qualified Code(s): R41.82 - Altered mental status, unspecified Plan to address problem: Toxic/metabolic encephalopathy improving. Patient is probably back to his baseline (3) Hyperkalemia Current Visit: Yes Status: Acute Plan to address problem: Resolved with medical management (4) Hypertensive chronic kidney disease with stage 1 through stage 4 chronic kidney disease, or unspecified chronic kidney disease Current Visit: Yes Status: Acute Plan to address problem: Blood pressure was low normal. Follow-up blood pressure off of medications. (5) Type 2 diabetes mellitus with diabetic chronic kidney disease Current Visit: Yes Status: Acute Plan to address problem: Blood sugar management by primary attending (6) UTI (urinary tract infection) Current Visit: Yes Status: Acute Qualifiers: Urinary tract infection type: acute cystitis Hematuria presence: without hematuria Qualified Code(s): N30.00 - Acute cystitis without hematuria Plan to address problem: Urine growing gram-negative rods. Continue antibiotics. 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 He denies any complaints except that he is hungry. He says he did not have breakfast.. No chest pain, nausea or vomiting. No abdominal pain Objective - Exam Narrative Exam: Heavily built elderly -Martin[place]ais male lying in bed in no acute distress HEENT: NCAT, pink oral mucous membrane Neck: Supple, no venous distention CVS: S1S2 RRR with no murmur, rub or gallop Chest: Clear to auscultation Abdomen: Protuberant, soft, nontender, no organomegaly, bowel sounds are present Extremities: No edema Neuro: Awake, alert no focal deficits - Vital Signs Vital signs: Vital Signs - 12hr 08/23/20 08/23/20 08/23/20 00:16 00:22 04:50 Temperature 99.7 F H 98.6 F Pulse Rate 104 H 91 H Pulse Rate [ Anterior Bilateral Throughout] Respiratory 20 16 Rate Respiratory Rate [Anterior Bilateral Throughout] Blood Pressure 182/100 184/99 187/106 O2 Sat by Pulse 95 95 Oximetry 08/23/20 08/23/20 08/23/20 05:47 08:26 08:27 Temperature 98.8 F Pulse Rate 91 H 101 H Pulse Rate [ 102 H Anterior Bilateral Throughout] Respiratory 18 Rate Respiratory 20 Rate [Anterior Bilateral Throughout] Blood Pressure 187/106 92/63 O2 Sat by Pulse 97 Oximetry - Lab 08/23/20 00:26 08/23/20 00:26 Most recent lab results Calcium 8.2 mg/dL (8.4-10.2) L 08/23/20 00:26 Medications & Allergies - Medications Allergies/Adverse Reactions: Allergies No Known Allergies Allergy (Unverified 04/23/13 16:35) Home Medications: Home Medications Medication Instructions Recorded Confirmed Last Taken Type Clopidogrel [Plavix] 75 mg PO QDAY #30 tablet NS 05/23/13 08/21/20 Unknown Rx amLODIPine 10 mg PO DAILY tablet 06/25/16 08/21/20 Unknown Rx Budesonide [Pulmicort] 0.5 mg IH Q12HR 08/21/20 08/21/20 Unknown History Cetirizine HCl [Cetirizine 10mg 10 mg PO DAILY 08/21/20 08/21/20 Unknown History chew] Cholecalciferol Vit D3 [Vitamin D3 1,000 mg PO DAILY 08/21/20 08/21/20 Unknown History 1,000 UNIT TAB] Dexamethasone [Decadron] 6 mg PO DAILY 08/21/20 08/21/[address] [Depmichele Dr] 500 mg PO BID 08/21/20 08/21/20 Unknown History Finasteride [Proscar] 5 mg PO DAILY 08/21/20 08/21/20 Unknown History Hydralazine HCl 50 mg PO TID 08/21/20 08/21/20 Unknown History Memantine [Namenda] 5 mg PO BID 08/21/20 08/21/20 Unknown History Montelukast [Singulair] 10 mg PO QPM 08/21/20 08/21/20 Unknown History Multivit,Calc,Mins/Iron/Folic 1 each PO DAILY 08/21/20 08/21/20 Unknown History [Thera-M Caplet] Pravastatin [Pravachol] 40 mg PO HS 08/21/20 08/21/20 Unknown History QUEtiapine [SEROquel] 12.5 mg PO BID 08/21/20 08/21/20 Unknown History Salmeterol Xinafoate [Serevent 50 mcg IH BID 08/21/20 08/21/20 Unknown History Diskus] allopurinoL [Zyloprim] 100 mg PO DAILY 08/21/20 08/21/20 Unknown History cloNIDine [Catapres] 0.2 mg PO BID 08/21/20 08/21/20 Unknown History Active Medications: Generic Name Dose Route Start Last Admin Trade Name Freq PRN Reason Stop Dose Admin Acetaminophen 650 mg 08/20/20 23:26 Acetaminophen 325 Mg Tab PO Q4H PRN Pain MILD(1-3)/Fever >100.5/CARRILLO Albuterol/Ipratropium 1 ampul 08/21/20 20:00 08/23/20 08:26 Ipratropium/Albuterol Sulfate 3 Ml Ampul.Neb IH 1 ampul Q6HRT BROOKE Administration Benzonatate 100 mg 08/21/20 15:00 Benzonatate 100 Mg Cap PO Q6HR PRN Cough Clopidogrel Bisulfate 75 mg 08/22/20 10:00 08/22/20 10:16 Clopidogrel 75 Mg Tab PO 75 mg QDAY BROOKE Administration Dextrose 0 ml 08/20/20 23:26 Dextrose 50% In Water (25gm) 50 Ml Syringe IV Q30MIN PRN Hypoglycemia Protocol Donepezil HCl 10 mg 08/22/20 10:00 08/22/20 10:16 Donepezil 10 Mg Tab PO 10 mg QDAY BROOKE Administration Heparin Sodium (Porcine) 5,000 unit 08/21/20 06:00 08/23/20 05:46 Heparin 5,000 Unit/1 Ml Vial SUB-Q 5,000 unit Q8HR BROOKE Administration Hydralazine HCl 10 mg 08/23/20 05:25 08/23/20 05:47 Hydralazine 20 Mg/1 Ml Inj IV 10 mg Q4HR PRN Administration SBP>160 Ceftriaxone Sodium 1 gm in 50 mls @ 100 mls/hr 08/21/20 10:00 08/22/20 10:15 Rocephin/Ns 1 Gm/50 Ml IV 100 mls/hr Q24HR BROOKE Administration Protocol Sodium Chloride 1,000 mls @ 100 mls/hr 08/21/20 08:00 08/22/20 15:01 Nacl 0.9% 1000 Ml IV 100 mls/hr DIRECT BROOKE Administration Insulin Human Lispro 0 unit 08/21/20 07:30 08/22/20 22:31 Insulin Lispro 100 Unit/Ml Vial 3 Ml SUB-Q Not Given ACHS BROOKE Protocol Magnesium Hydroxide 30 ml 08/20/20 23:26 Magnesium Hydroxide (Mom) Oral Liqd Udc PO Q4H PRN Constipation Morphine Sulfate 2 mg 08/20/20 23:26 Morphine 2 Mg/1 Ml Inj IV Q4H PRN Pain, Moderate (4-6) Ondansetron HCl 4 mg 08/20/20 23:26 Ondansetron 4 Mg/2 Ml Inj IV Q8H PRN Nausea And Vomiting Sodium Chloride 10 ml 08/21/20 10:00 08/22/20 22:31 Sodium Chloride 0.9% 10 Ml Flush Syringe IV 10 ml BID BROOKE Administration Sodium Chloride 10 ml 08/20/20 23:26 Sodium Chloride 0.9% 10 Ml Flush Syringe IV PRN PRN LINE FLUSH
[2020-08-23] MEDS: CLOPIDOGREL 75 MG TAB PO SCH (10:37)
[2020-08-23] MEDS: cefTRIAXone/NS 1 GM/50 ML 1 GM/50 ML BAG IV SCH (10:37)
[2020-08-23] MEDS: DONEPEZIL 10 MG TAB PO SCH (10:37)
[2020-08-23 14:36] LABS: Basophils % (Auto) 0.2 % (0.0-1.8); Eosinophils # (Auto) 0.1 K/mm3 (0.0-0.4); Eosinophils % (Auto) 0.7 % (0.0-4.3); Hematocrit 35.6 % (35.5-45.6); Hemoglobin 11.3 gm/dl (11.8-15.2); Lymphocytes # (Auto) 1.7 K/mm3 (1.2-5.4); Lymphocytes % (Auto) 14.6 % (13.4-35.0); Mean Corpuscular HGB Conc 32 % (32-34); Mean Corpuscular Volume 91 fl (84-94); Monocytes # (Auto) 1.3 K/mm3 (0.0-0.8); Monocytes % (Auto) 11.3 % (0.0-7.3); Platelet Count 315 K/mm3 (140-440); Red Blood Count 3.92 M/mm3 (3.65-5.03); Red Cell Distribution Width 17.4 % (13.2-15.2)
[2020-08-23 14:54] LABS: Albumin 3.4 g/dL (3.9-5); Calcium 8.7 mg/dL (8.4-10.2)
--- NOTE | 2020-08-23 15:31 | Progress Note ---
Subjective Date of service: 08/23/20 Principal diagnosis: Acute kidney injury Interval history: Assessment and plan: --- Acute metabolic encephalopathy Current Visit: Yes Status: Acute Qualifiers: Altered mental status type: unspecified Qualified Code(s): R41.82 - Altered mental status, unspecified Plan to address problem: Improving She is alert and oriented and eating by herself and responds to questions and fo llows commands Patient has a history of dementia and now comes in with confusion. CT head negative for any stroke Found to have UTI Patient is still lethargic versus sleepy. Confused --- Urinary tract infection Current Visit: No Status: Chronic Plan to address problem: Continue IV antibiotic with Rocephin Urine cultures positive for gram-negative rods Isolation and sensitivity pending Once isolation and sensitivity results are available we will transfer the patient to half-way on appropriate antibiotics --Chronic kidney disease (CKD), stage III (moderate) Current Visit: Yes Status: Chronic Qualifiers: Chronic kidney disease stage 3 subtype: stage 3b (GFR 30-44) Qualified Cod e(s): N18.32 - Chronic kidney disease, stage 3b Plan to address problem: Nephrology note reviewed Patient refused renal ultrasound and this was canceled ---HTN (hypertension) Current Visit: Yes Status: Chronic Qualifiers: Hypertension type: essential hypertension Qualified Code(s): I10 - Essential (primary) hypertension Plan to address problem: Fair Continue present medications --Vascular dementia Current Visit: No Status: Chronic Plan to address problem: Continue routine medications. --Elevated troponin Current Visit: Yes Status: Acute Plan to address problem: Possibly secondary to the chronic kidney disease. Denies any chest pain ---DVT prophylaxis Current Visit: Yes Status: Acute Plan to address problem: Patient placed on subcutaneous heparin. --Full code status Current Visit: Yes Status: Acute Plan to address problem: Patient is a full code. History Interval history: Patient seen and examined at bedside He does not know why he is here. States he lives with spouse in [place] He is confused Labs reviewed 08/22/20 patient is awake and alert and follows simple commands and is oriented to her name, she is eating by herself ID and nephrology notes reviewed, lab results reviewed 1/ Hospitalist Physical - Physical exam Narrative exam: VITAL SIGNS: Reviewed. GENERAL: Awake HEAD: No signs of head trauma. EYES: Pupils are equal. Extraocular motions intact. NECK: No adenopathy, no JVD. CHEST: Chest with diminished breath sounds bilaterally. CARDIAC: Regular rate and rhythm ABDOMEN: Soft, obese ,non tender and non distended. No Extremities, wound on right fifth toe bilateral leg edema, dressing on right foot NEUROLOGIC EXAM: Awake and alert and moves all extremities SKIN: No obvious lesions, discoloration of the skin across the lower abdominal wall Objective - Constitutional Vitals: Vital Signs - 12hr 08/23/20 08/23/20 08/23/20 04:50 05:47 08:26 Temperature 98.6 F Pulse Rate 91 H 91 H Pulse Rate [ 102 H Anterior Bilateral Throughout] Respiratory 16 Rate Respiratory 20 Rate [Anterior Bilateral Throughout] Blood Pressure 187/106 187/106 O2 Sat by Pulse 95 Oximetry 08/23/20 08/23/20 08/23/20 08:27 10:00 12:02 Temperature 98.8 F 97.9 F Pulse Rate 101 H Pulse Rate [ Anterior Bilateral Throughout] Respiratory 18 18 Rate Respiratory Rate [Anterior Bilateral Throughout] Blood Pressure 92/63 153/80 O2 Sat by Pulse 97 95 Oximetry 08/23/20 14:00 Temperature Pulse Rate Pulse Rate [ 108 H Anterior Bilateral Throughout] Respiratory Rate Respiratory 20 Rate [Anterior Bilateral Throughout] Blood Pressure O2 Sat by Pulse Oximetry - Labs CBC & Chem 7: 08/23/20 14:18 08/23/20 14:18 Labs: Abnormal lab results 08/22/20 08/23/20 08/23/20 Range/Units 21:40 00:26 00:26 WBC 13.6 H (4.5-11.0) K/mm3 Hgb 10.7 L (11.8-15.2) gm/dl Hct 32.9 L (35.5-45.6) % RDW 17.0 H (13.2-15.2) % [place] % (Auto) 10.6 H (0.0-7.3) % [place] # (Auto) 1.4 H (0.0-0.8) K/mm3 Seg Neutrophils % 71.9 H (40.0-70.0) % Seg Neutrophils # 9.8 H (1.8-7.7) K/mm3 Chloride 107.7 H (98-107) mmol/L Carbon Dioxide 21 L (22-30) mmol/L BUN 60 H (9-20) mg/dL Creatinine 2.7 H (0.8-1.3) mg/dL Glucose 126 H (75-100) mg/dL POC Glucose 124 H (70-105) mg/dL Calcium 8.2 L (8.4-10.2) mg/dL Total Protein 6.1 L (6.3-8.2) g/dL Albumin 3.1 L (3.9-5) g/dL 08/23/20 08/23/20 08/23/20 Range/Units 12:06 14:18 14:18 WBC 11.3 H (4.5-11.0) K/mm3 Hgb 11.3 L (11.8-15.2) gm/dl Hct (35.5-45.6) % RDW 17.4 H (13.2-15.2) % [place] % (Auto) 11.3 H (0.0-7.3) % [place] # (Auto) 1.3 H (0.0-0.8) K/mm3 Seg Neutrophils % 73.2 H (40.0-70.0) % Seg Neutrophils # 8.3 H (1.8-7.7) K/mm3 Chloride 108.2 H (98-107) mmol/L Carbon Dioxide (22-30) mmol/L BUN 47 H (9-20) mg/dL Creatinine 2.7 H (0.8-1.3) mg/dL Glucose 190 H (75-100) mg/dL POC Glucose 127 H (70-105) mg/dL Calcium (8.4-10.2) mg/dL Total Protein 6.1 L (6.3-8.2) g/dL Albumin 3.4 L (3.9-5) g/dL HEART Score - HEART Score Troponin: Troponin T 0.076 ng/mL (0.00-0.029) H 08/21/20 07:51
[2020-08-23] MEDS: SODIUM CHLORIDE 0.9% 1000 ML 1,000 ML IV SCH (17:45)
[2020-08-24] MEDS: IPRATROPIUM/ALBUTEROL SULFATE 3 ML AMPUL.NEB IH SCH ×4 (03:18→19:11)
[2020-08-24] MEDS: HEPARIN 5,000 UNIT/1 ML VIAL SUB-Q SCH ×4 (06:47→22:41)
[2020-08-24] MEDS: SODIUM CHLORIDE 0.9% 1000 ML 1,000 ML IV SCH ×2 (06:55→20:58)
[2020-08-24] MEDS: cefTRIAXone/NS 1 GM/50 ML 1 GM/50 ML BAG IV SCH (10:21)
[2020-08-24] MEDS: CLOPIDOGREL 75 MG TAB PO SCH (10:21)
[2020-08-24] MEDS: DONEPEZIL 10 MG TAB PO SCH (10:21)
[2020-08-24] MEDS: INSULIN LISPRO 100 UNIT/ML VIAL 3 mL SUB-Q SCH ×4 (10:21→22:42)
--- NOTE | 2020-08-24 13:49 | Progress Note ---
Assessment and Plan - Patient Problems (1) Yzpwf-[id number] kidney injury Current Visit: Yes Status: Acute Plan to address problem: Acute kidney injury superimposed on chronic kidney disease secondary to UTI with sepsis. Kidney function was improving. No labs today. Continue gentle volume repletion. Follow-up electrolytes and renal function in the morning (2) Altered mental status Current Visit: Yes Status: Acute Qualifiers: Altered mental status type: unspecified Qualified Code(s): R41.82 - Altered mental status, unspecified Plan to address problem: Toxic/metabolic encephalopathy improving. Patient is probably back to his baseline (3) Hyperkalemia Current Visit: Yes Status: Acute Plan to address problem: Resolved with medical management (4) Hypertensive chronic kidney disease with stage 1 through stage 4 chronic kidney disease, or unspecified chronic kidney disease Current Visit: Yes Status: Acute Plan to address problem: Blood pressure is now improving. Agree with hydralazine as needed. If blood pressure stays high, start scheduled antihypertensive medication.. Follow-up blood pressure off of medications. (5) Type 2 diabetes mellitus with diabetic chronic kidney disease Current Visit: Yes Status: Acute Plan to address problem: Blood sugar management by primary attending (6) UTI (urinary tract infection) Current Visit: Yes Status: Acute Qualifiers: Urinary tract infection type: acute cystitis Hematuria presence: without hematuria Qualified Code(s): N30.00 - Acute cystitis without hematuria Plan to address problem: Urine growing gram-negative rods. Continue antibiotics. 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 No new complaints. Still confused. No chest pain, nausea or vomiting. No abdominal pain Objective - Exam Narrative Exam: Heavily built elderly -[place] male lying in bed in no acute distress HEENT: NCAT, pink oral mucous membrane Neck: Supple, no venous distention CVS: S1S2 RRR with no murmur, rub or gallop Chest: Clear to auscultation Abdomen: Protuberant, soft, nontender, no organomegaly, bowel sounds are present Extremities: No edema Neuro: Awake, alert no focal deficits - Vital Signs Vital signs: Vital Signs - 12hr 08/24/20 08/24/20 08/24/20 04:44 08:15 08:24 Temperature 99.0 F 98.9 F Pulse Rate 89 85 Pulse Rate [ 118 H Anterior Bilateral Throughout] Respiratory 18 20 Rate Respiratory 20 Rate [Anterior Bilateral Throughout] Blood Pressure 171/103 165/87 O2 Sat by Pulse 99 97 Oximetry - Lab 08/23/20 14:18 08/23/20 14:18 Most recent lab results Calcium 8.7 mg/dL (8.4-10.2) 08/23/20 14:18 Medications & Allergies - Medications Allergies/Adverse Reactions: Allergies No Known Allergies Allergy (Unverified 04/23/13 16:35) Home Medications: Home Medications Medication Instructions Recorded Confirmed Last Taken Type Clopidogrel [Plavix] 75 mg PO QDAY #30 tablet NS 05/23/13 08/21/20 Unknown Rx amLODIPine 10 mg PO DAILY tablet 06/25/16 08/21/20 Unknown Rx Budesonide [Pulmicort] 0.5 mg IH Q12HR 08/21/20 08/21/20 Unknown History Cetirizine HCl [Cetirizine 10mg 10 mg PO DAILY 08/21/20 08/21/20 Unknown History chew] Cholecalciferol Vit D3 [Vitamin D3 1,000 mg PO DAILY 08/21/20 08/21/20 Unknown History 1,000 UNIT TAB] Dexamethasone [Decadron] 6 mg PO DAILY 08/21/20 08/21/[address] [Depakote Dr] 500 mg PO BID 08/21/20 08/21/20 Unknown History Finasteride [Proscar] 5 mg PO DAILY 08/21/20 08/21/20 Unknown History Hydralazine HCl 50 mg PO TID 08/21/20 08/21/20 Unknown History Memantine [Namenda] 5 mg PO BID 08/21/20 08/21/20 Unknown History Montelukast [Singulair] 10 mg PO QPM 08/21/20 08/21/20 Unknown History Multivit,Calc,Mins/Iron/Folic 1 each PO DAILY 08/21/20 08/21/20 Unknown History [Thera-M Caplet] Pravastatin [Pravachol] 40 mg PO HS 08/21/20 08/21/20 Unknown History QUEtiapine [SEROquel] 12.5 mg PO BID 08/21/20 08/21/20 Unknown History Salmeterol Xinafoate [Serevent 50 mcg IH BID 08/21/20 08/21/20 Unknown History Diskus] allopurinoL [Zyloprim] 100 mg PO DAILY 08/21/20 08/21/20 Unknown History cloNIDine [Catapres] 0.2 mg PO BID 08/21/20 08/21/20 Unknown History Active Medications: Generic Name Dose Route Start Last Admin Trade Name Freq PRN Reason Stop Dose Admin Acetaminophen 650 mg 08/20/20 23:26 Acetaminophen 325 Mg Tab PO Q4H PRN Pain MILD(1-3)/Fever >100.5/CARRILLO Albuterol/Ipratropium 1 ampul 08/21/20 20:00 08/24/20 08:15 Ipratropium/Albuterol Sulfate 3 Ml Ampul.Neb IH 1 ampul Q6HRT BROOKE Administration Benzonatate 100 mg 08/21/20 15:00 Benzonatate 100 Mg Cap PO Q6HR PRN Cough Clopidogrel Bisulfate 75 mg 08/22/20 10:00 08/24/20 10:21 Clopidogrel 75 Mg Tab PO 75 mg QDAY BROOKE Administration Dextrose 0 ml 08/20/20 23:26 Dextrose 50% In Water (25gm) 50 Ml Syringe IV Q30MIN PRN Hypoglycemia Protocol Donepezil HCl 10 mg 08/22/20 10:00 08/24/20 10:21 Donepezil 10 Mg Tab PO 10 mg QDAY BROOKE Administration Heparin Sodium (Porcine) 5,000 unit 08/21/20 06:00 08/24/20 06:47 Heparin 5,000 Unit/1 Ml Vial SUB-Q 5,000 unit Q8HR BROOKE Administration Hydralazine HCl 10 mg 08/23/20 05:25 08/23/20 05:47 Hydralazine 20 Mg/1 Ml Inj IV 10 mg Q4HR PRN Administration SBP>160 Ceftriaxone Sodium 1 gm in 50 mls @ 100 mls/hr 08/21/20 10:00 08/24/20 10:21 Rocephin/Ns 1 Gm/50 Ml IV 100 mls/hr Q24HR BROOKE Administration Protocol Sodium Chloride 1,000 mls @ 100 mls/hr 08/21/20 08:00 08/24/20 06:55 Nacl 0.9% 1000 Ml IV 100 mls/hr DIRECT BROOKE Administration Insulin Human Lispro 0 unit 08/21/20 07:30 08/24/20 10:21 Insulin Lispro 100 Unit/Ml Vial 3 Ml SUB-Q Not Given ACHS BROOKE Protocol Magnesium Hydroxide 30 ml 08/20/20 23:26 Magnesium Hydroxide (Mom) Oral Liqd Udc PO Q4H PRN Constipation Morphine Sulfate 2 mg 08/20/20 23:26 Morphine 2 Mg/1 Ml Inj IV Q4H PRN Pain, Moderate (4-6) Ondansetron HCl 4 mg 08/20/20 23:26 Ondansetron 4 Mg/2 Ml Inj IV Q8H PRN Nausea And Vomiting Sodium Chloride 10 ml 08/21/20 10:00 08/24/20 10:22 Sodium Chloride 0.9% 10 Ml Flush Syringe IV 10 ml BID BROOKE Administration Sodium Chloride 10 ml 08/20/20 23:26 Sodium Chloride 0.9% 10 Ml Flush Syringe IV PRN PRN LINE FLUSH
--- NOTE | 2020-08-24 13:57 | Progress Note ---
Subjective Date of service: 08/24/20 Principal diagnosis: Acute kidney injury Interval history: Assessment and plan: --- Acute metabolic encephalopathy Current Visit: Yes Status: Acute Qualifiers: Altered mental status type: unspecified Qualified Code(s): R41.82 - Altered mental status, unspecified Plan to address problem: Improving She is alert and oriented and eating by herself and responds to questions and fo llows commands Patient has a history of dementia and now comes in with confusion. CT head negative for any stroke Found to have UTI Patient is still lethargic versus sleepy. Confused --- Urinary tract infection Current Visit: No Status: Chronic Plan to address problem: Continue IV antibiotic with Rocephin Urine cultures positive for gram-negative rods Isolation and sensitivity pending Once isolation and sensitivity results are available we will transfer the patient to detention on appropriate antibiotics --Chronic kidney disease (CKD), stage III (moderate) Current Visit: Yes Status: Chronic Qualifiers: Chronic kidney disease stage 3 subtype: stage 3b (GFR 30-44) Qualified Cod e(s): N18.32 - Chronic kidney disease, stage 3b Plan to address problem: Nephrology note reviewed Patient refused renal ultrasound and this was canceled ---HTN (hypertension) Current Visit: Yes Status: Chronic Qualifiers: Hypertension type: essential hypertension Qualified Code(s): I10 - Essential (primary) hypertension Plan to address problem: Fair Continue present medications --Vascular dementia Current Visit: No Status: Chronic Plan to address problem: Continue routine medications. --Elevated troponin Current Visit: Yes Status: Acute Plan to address problem: Possibly secondary to the chronic kidney disease. Denies any chest pain ---DVT prophylaxis Current Visit: Yes Status: Acute Plan to address problem: Patient placed on subcutaneous heparin. --Full code status Current Visit: Yes Status: Acute Plan to address problem: Patient is a full code. History Interval history: Patient seen and examined at bedside He does not know why he is here. States he lives with spouse in [place] He is confused Labs reviewed 08/22/20 patient is awake and alert and follows simple commands and is oriented to her name, she is eating by herself ID and nephrology notes reviewed, lab results reviewed 08/24 no acute events over nite. NAD. eyes closed., aphasic Hospitalist Physical - Physical exam Narrative exam: VITAL SIGNS: Reviewed. GENERAL: Awake HEAD: No signs of head trauma. EYES: Pupils are equal. NECK: No adenopathy, no JVD. CHEST: Chest with diminished breath sounds bilaterally. CARDIAC: Regular rate and rhythm ABDOMEN: Soft, obese ,non tender and non distended. No Extremities, wound on right fifth toe bilateral leg edema, dressing on right foot NEUROLOGIC EXAM: Awake and alert and moves all extremities SKIN: No obvious lesions, discoloration of the skin across the lower abdominal wall Objective - Constitutional Vitals: Vital Signs - 12hr 08/24/20 08/24/20 08/24/20 04:44 08:15 08:24 Temperature 99.0 F 98.9 F Pulse Rate 89 85 Pulse Rate [ 118 H Anterior Bilateral Throughout] Respiratory 18 20 Rate Respiratory 20 Rate [Anterior Bilateral Throughout] Blood Pressure 171/103 165/87 O2 Sat by Pulse 99 97 Oximetry - Labs CBC & Chem 7: 08/23/20 14:18 08/24/20 16:15 Labs: Abnormal lab results 08/23/20 08/23/20 08/23/20 Range/Units 14:18 14:18 16:21 WBC 11.3 H (4.5-11.0) K/mm3 Hgb 11.3 L (11.8-15.2) gm/dl RDW 17.4 H (13.2-15.2) % [place] % (Auto) 11.3 H (0.0-7.3) % [place] # (Auto) 1.3 H (0.0-0.8) K/mm3 Seg Neutrophils % 73.2 H (40.0-70.0) % Seg Neutrophils # 8.3 H (1.8-7.7) K/mm3 Chloride 108.2 H (98-107) mmol/L BUN 47 H (9-20) mg/dL Creatinine 2.7 H (0.8-1.3) mg/dL Glucose 190 H (75-100) mg/dL POC Glucose 153 H (70-105) mg/dL Total Protein 6.1 L (6.3-8.2) g/dL Albumin 3.4 L (3.9-5) g/dL 08/23/20 08/24/20 Range/Units 21:42 11:27 WBC (4.5-11.0) K/mm3 Hgb (11.8-15.2) gm/dl RDW (13.2-15.2) % [place] % (Auto) (0.0-7.3) % [place] # (Auto) (0.0-0.8) K/mm3 Seg Neutrophils % (40.0-70.0) % Seg Neutrophils # (1.8-7.7) K/mm3 Chloride (98-107) mmol/L BUN (9-20) mg/dL Creatinine (0.8-1.3) mg/dL Glucose (75-100) mg/dL POC Glucose 136 H 176 H (70-105) mg/dL Total Protein (6.3-8.2) g/dL Albumin (3.9-5) g/dL HEART Score - HEART Score Troponin: Troponin T 0.076 ng/mL (0.00-0.029) H 08/21/20 07:51
[2020-08-24 17:19] LABS: Alanine Aminotransferase 24 units/L (7-56); BUN/Creatinine Ratio 14; Blood Urea Nitrogen 42 mg/dL (9-20); Calcium 8.3 mg/dL (8.4-10.2); Hemolysis Index 11
[2020-08-25] MEDS: IPRATROPIUM/ALBUTEROL SULFATE 3 ML AMPUL.NEB IH SCH ×3 (05:28→21:43)
[2020-08-25] MEDS: HEPARIN 5,000 UNIT/1 ML VIAL SUB-Q SCH ×3 (06:37→21:48)
[2020-08-25] MEDS: CLOPIDOGREL 75 MG TAB PO SCH (10:18)
[2020-08-25] MEDS: cefTRIAXone/NS 1 GM/50 ML 1 GM/50 ML BAG IV SCH (10:18)
[2020-08-25] MEDS: DONEPEZIL 10 MG TAB PO SCH (10:18)
--- NOTE | 2020-08-25 10:18 | Progress Note ---
Assessment and Plan - Patient Problems (1) Xupfm-[id number] kidney injury Current Visit: Yes Status: Acute Plan to address problem: Patient likely has an acute on chronic kidney injury at this time secondary to underlying urinary tract infection. Overall renal function remained stable at this time. (2) Hypertensive chronic kidney disease with stage 1 through stage 4 chronic kidney disease, or unspecified chronic kidney disease Current Visit: Yes Status: Acute Plan to address problem: Monitor on current regimen. (3) Type 2 diabetes mellitus with diabetic chronic kidney disease Current Visit: Yes Status: Acute Plan to address problem: Diabetes management primary attending (4) Hyperkalemia Current Visit: Yes Status: Acute Plan to address problem: Resolved at this time with appropriate IV fluid hydration. (5) UTI (urinary tract infection) Current Visit: Yes Status: Acute Qualifiers: Urinary tract infection type: acute cystitis Hematuria presence: without hematuria Qualified Code(s): N30.00 - Acute cystitis without hematuria Plan to address problem: Please ensure that antibiotics are dosed appropriate for his decreased renal function. Subjective Date of service: 08/25/20 Principal diagnosis: Acute kidney injury Interval history: No acute issues at this time. Renal function remained stable at this time. Objective - Vital Signs Vital signs: Vital Signs - 12hr 08/25/20 08/25/20 08/25/20 01:09 07:50 08:43 Temperature 99.1 F 98.4 F Pulse Rate 78 80 Pulse Rate [ 89 Anterior Bilateral Throughout] Respiratory 18 18 Rate Respiratory 18 Rate [Anterior Bilateral Throughout] Blood Pressure 168/93 191/98 O2 Sat by Pulse 99 98 Oximetry 08/25/20 09:13 Temperature Pulse Rate Pulse Rate [ Anterior Bilateral Throughout] Respiratory Rate Respiratory Rate [Anterior Bilateral Throughout] Blood Pressure O2 Sat by Pulse 95 Oximetry - General Appearance General appearance: appears stated age, chronically ill EENT: ATNC Neck: no JVD Respiratory: Present: Clear to Ascultation Cardiology: regular Gastrointestinal: normal Integumentary: warm and dry Neurologic: disoriented Musculoskeletal: deferred - Lab 08/23/20 14:18 08/24/20 16:15 Most recent lab results Calcium 8.3 mg/dL (8.4-10.2) L 08/24/20 16:15 - Allied health notes Allied health notes reviewed: nursing Medications & Allergies - Medications Allergies/Adverse Reactions: Allergies No Known Allergies Allergy (Unverified 04/23/13 16:35) Home Medications: Home Medications Medication Instructions Recorded Confirmed Last Taken Type Clopidogrel [Plavix] 75 mg PO QDAY #30 tablet NS 05/23/13 08/21/20 Unknown Rx amLODIPine 10 mg PO DAILY tablet 06/25/16 08/21/20 Unknown Rx Budesonide [Pulmicort] 0.5 mg IH Q12HR 08/21/20 08/21/20 Unknown History Cetirizine HCl [Cetirizine 10mg 10 mg PO DAILY 08/21/20 08/21/20 Unknown History chew] Cholecalciferol Vit D3 [Vitamin D3 1,000 mg PO DAILY 08/21/20 08/21/20 Unknown History 1,000 UNIT TAB] Dexamethasone [Decadron] 6 mg PO DAILY 08/21/20 08/21/[address] [Depakote Dr] 500 mg PO BID 08/21/20 08/21/20 Unknown History Finasteride [Proscar] 5 mg PO DAILY 08/21/20 08/21/20 Unknown History Hydralazine HCl 50 mg PO TID 08/21/20 08/21/20 Unknown History Memantine [Namenda] 5 mg PO BID 08/21/20 08/21/20 Unknown History Montelukast [Singulair] 10 mg PO QPM 08/21/20 08/21/20 Unknown History Multivit,Calc,Mins/Iron/Folic 1 each PO DAILY 08/21/20 08/21/20 Unknown History [Thera-M Caplet] Pravastatin [Pravachol] 40 mg PO HS 08/21/20 08/21/20 Unknown History QUEtiapine [SEROquel] 12.5 mg PO BID 08/21/20 08/21/20 Unknown History Salmeterol Xinafoate [Serevent 50 mcg IH BID 08/21/20 08/21/20 Unknown History Diskus] allopurinoL [Zyloprim] 100 mg PO DAILY 08/21/20 08/21/20 Unknown History cloNIDine [Catapres] 0.2 mg PO BID 08/21/20 08/21/20 Unknown History Active Medications: Generic Name Dose Route Start Last Admin Trade Name Freq PRN Reason Stop Dose Admin Acetaminophen 650 mg 08/20/20 23:26 Acetaminophen 325 Mg Tab PO Q4H PRN Pain MILD(1-3)/Fever >100.5/CARRILLO Albuterol/Ipratropium 1 ampul 08/25/20 20:00 Ipratropium/Albuterol Sulfate 3 Ml Ampul.Neb IH Q6HRT BROOKE Benzonatate 100 mg 08/21/20 15:00 08/24/20 20:57 Benzonatate 100 Mg Cap PO 100 mg Q6HR PRN Administration Cough Clopidogrel Bisulfate 75 mg 08/22/20 10:00 08/24/20 10:21 Clopidogrel 75 Mg Tab PO 75 mg QDAY BROOKE Administration Dextrose 0 ml 08/20/20 23:26 Dextrose 50% In Water (25gm) 50 Ml Syringe IV Q30MIN PRN Hypoglycemia Protocol Donepezil HCl 10 mg 08/22/20 10:00 08/24/20 10:21 Donepezil 10 Mg Tab PO 10 mg QDAY BROOKE Administration Heparin Sodium (Porcine) 5,000 unit 08/21/20 06:00 08/25/20 06:37 Heparin 5,000 Unit/1 Ml Vial SUB-Q 5,000 unit Q8HR BROOKE Administration Hydralazine HCl 10 mg 08/23/20 05:25 08/23/20 05:47 Hydralazine 20 Mg/1 Ml Inj IV 10 mg Q4HR PRN Administration SBP>160 Ceftriaxone Sodium 1 gm in 50 mls @ 100 mls/hr 08/21/20 10:00 08/24/20 10:21 Rocephin/Ns 1 Gm/50 Ml IV 08/27/20 10:29 100 mls/hr Q24HR BROOKE Administration Protocol Sodium Chloride 1,000 mls @ 100 mls/hr 08/21/20 08:00 08/24/20 20:58 Nacl 0.9% 1000 Ml IV 100 mls/hr DIRECT BROOKE Administration Insulin Human Lispro 0 unit 08/21/20 07:30 08/24/20 22:42 Insulin Lispro 100 Unit/Ml Vial 3 Ml SUB-Q Not Given ACHS BROOKE Protocol Magnesium Hydroxide 30 ml 08/20/20 23:26 Magnesium Hydroxide (Mom) Oral Liqd Udc PO Q4H PRN Constipation Morphine Sulfate 2 mg 08/20/20 23:26 Morphine 2 Mg/1 Ml Inj IV Q4H PRN Pain, Moderate (4-6) Ondansetron HCl 4 mg 08/20/20 23:26 Ondansetron 4 Mg/2 Ml Inj IV Q8H PRN Nausea And Vomiting Sodium Chloride 10 ml 08/21/20 10:00 08/25/20 06:42 Sodium Chloride 0.9% 10 Ml Flush Syringe IV Not Given BID BROOKE Sodium Chloride 10 ml 08/20/20 23:26 Sodium Chloride 0.9% 10 Ml Flush Syringe IV PRN PRN LINE FLUSH
[2020-08-25] MEDS: INSULIN LISPRO 100 UNIT/ML VIAL 3 mL SUB-Q SCH ×3 (10:19→21:48)
--- NOTE | 2020-08-25 17:07 | Progress Note ---
Subjective Date of service: 08/25/20 Principal diagnosis: Acute kidney injury Interval history: Assessment and plan: --- Acute metabolic encephalopathy Current Visit: Yes Status: Acute Qualifiers: Altered mental status type: unspecified Qualified Code(s): R41.82 - Altered mental status, unspecified Plan to address problem: Improved She is alert and oriented and eating by herself and responds to questions and follows commands Patient has a history of dementia and now comes in with confusion. CT head negative for any stroke Found to have UTI Patient is alert. Confused --- Urinary tract infection Current Visit: No Status: Chronic Plan to address problem: Continue IV antibiotic with Rocephin Urine cultures positive for gram-negative rods discussed with microbiology positive for proteus mirabilis, but having problems with sensitivity studies and [facility] Once isolation and sensitivity results are available we will [facility] the patient [facility] on appropriate antibiotics --Chronic kidney disease (CKD), stage III (moderate) Current Visit: Yes Status: Chronic Qualifiers: Chronic kidney disease stage 3 subtype: stage 3b (GFR 30-44) Qualified Code(s): N18.32 - Chronic kidney disease, stage 3b Plan to address problem: Nephrology note reviewed apparently renal function is at base line per review of nephrology note will stop IVF Patient refused renal ultrasound and this was canceled ---HTN (hypertension) Current Visit: Yes Status: Chronic - uncontrolled Qualifiers: Hypertension type: essential hypertension Qualified Code(s): I10 - Essential (primary) hypertension Plan to address problem: medications adjusted --Vascular dementia Current Visit: No Status: Chronic Plan to address problem: Continue routine medications. --Elevated troponin Current Visit: Yes Status: Acute Plan to address problem: Possibly secondary to the chronic kidney disease. Denies any chest pain ---DVT prophylaxis Current Visit: Yes Status: Acute Plan to address problem: Patient placed on subcutaneous heparin. --Full code status Current Visit: Yes Status: Acute Plan to address problem: Patient is a full code. History Interval history: Patient seen and examined at bedside He does not know why he is here. States he lives with spouse in [place] He is confused Labs reviewed 08/22/20 patient is awake and alert and follows simple commands and is oriented to her name, she is eating by herself ID and nephrology notes reviewed, lab results reviewed 08/24 no acute events over nite. NAD. eyes closed., ? aphasic / patient is alert and awake. responds to questions well and speech is fair. no complaints Hospitalist Physical - Physical exam Narrative exam: VITAL SIGNS: Reviewed. GENERAL: Awake HEAD: No signs of head trauma. EYES: Pupils are equal. NECK: No adenopathy, no JVD. CHEST: Chest with diminished breath sounds bilaterally. CARDIAC: Regular rate and rhythm ABDOMEN: Soft, obese ,non tender and non distended. No Extremities, wound on right fifth toe bilateral leg edema, dressing on right foot NEUROLOGIC EXAM: Awake and alert and moves all extremities SKIN: No obvious lesions, discoloration of the skin across the lower abdominal wall Objective - Constitutional Vitals: Vital Signs - 12hr 08/25/20 08/25/20 08/25/20 07:50 08:43 09:13 Temperature 98.4 F Pulse Rate 80 Pulse Rate [ 89 Anterior Bilateral Throughout] Respiratory 18 Rate Respiratory 18 Rate [Anterior Bilateral Throughout] Respiratory Rate [Left Shoulder] Blood Pressure 191/98 O2 Sat by Pulse 98 95 Oximetry 08/25/20 10:00 Temperature Pulse Rate Pulse Rate [ Anterior Bilateral Throughout] Respiratory Rate Respiratory Rate [Anterior Bilateral Throughout] Respiratory 20 Rate [Left Shoulder] Blood Pressure O2 Sat by Pulse Oximetry - Labs CBC & Chem 7: 08/23/20 14:18 08/24/20 16:15 Labs: Abnormal lab results 08/24/20 08/24/20 Range/Units 16:15 23:58 Sodium 146 H (137-145) mmol/L Chloride 112.2 H (98-107) mmol/L BUN 42 H (9-20) mg/dL Creatinine 3.0 H (0.8-1.3) mg/dL Glucose 154 H (75-100) mg/dL POC Glucose 108 H (70-105) mg/dL Calcium 8.3 L (8.4-10.2) mg/dL Total Protein 5.3 L (6.3-8.2) g/dL Albumin 3.0 L (3.9-5) g/dL HEART Score - HEART Score Troponin: Troponin T 0.076 ng/mL (0.00-0.029) H 08/21/20 07:51
[2020-08-25] MEDS: amLODIPine 10 MG TAB PO SCH (20:33)
[2020-08-25] MEDS: cloNIDine 0.2 MG TAB PO SCH (20:34)
[2020-08-25] MEDS: PRAVASTATIN 40 MG TAB PO SCH (21:48)
[2020-08-26] MEDS: cloNIDine 0.2 MG TAB PO SCH ×3 (03:02→22:07)
[2020-08-26] MEDS: hydrALAZINE 20 MG/1 ML INJ IV PRN (05:09)
[2020-08-26] MEDS: HEPARIN 5,000 UNIT/1 ML VIAL SUB-Q SCH ×3 (05:09→22:08)
[2020-08-26] MEDS: IPRATROPIUM/ALBUTEROL SULFATE 3 ML AMPUL.NEB IH SCH ×5 (05:14→22:08)
--- NOTE | 2020-08-26 09:13 | Progress Note ---
Assessment and Plan - Patient Problems (1) Aysxc-[id number] kidney injury Current Visit: Yes Status: Acute Plan to address problem: Patient likely has an acute on chronic kidney injury at this time secondary to underlying urinary tract infection. Overall renal function remained stable at this time. No new labs this morning. (2) Hypertensive chronic kidney disease with stage 1 through stage 4 chronic kidney disease, or unspecified chronic kidney disease Current Visit: Yes Status: Acute Plan to address problem: Amlodipine 5 mg added yesterday. We will also add patient on hydralazine 25 mg twice daily. Will titrate as appropriate.. (3) Type 2 diabetes mellitus with diabetic chronic kidney disease Current Visit: Yes Status: Acute Plan to address problem: Diabetes management primary attending (4) Hyperkalemia Current Visit: Yes Status: Acute Plan to address problem: Resolved at this time with appropriate IV fluid hydration. (5) UTI (urinary tract infection) Current Visit: Yes Status: Acute Qualifiers: Urinary tract infection type: acute cystitis Hematuria presence: without hematuria Qualified Code(s): N30.00 - Acute cystitis without hematuria Plan to address problem: Please ensure that antibiotics are dosed appropriate for his decreased renal function. Subjective Date of service: 08/26/20 Principal diagnosis: Acute kidney injury Interval history: No acute changes overnight. No new labs this morning to review. Objective - Vital Signs Vital signs: Vital Signs - 12hr 08/25/20 08/25/20 08/25/20 21:44 22:10 23:26 Temperature 98.9 F Pulse Rate 78 Pulse Rate [ 105 H Anterior Bilateral Throughout] Pulse Rate [ 85 Apical] Respiratory 18 17 Rate Respiratory 18 Rate [Anterior Bilateral Throughout] Blood Pressure 158/85 O2 Sat by Pulse 97 93 Oximetry 08/26/20 08/26/20 08/26/20 03:02 04:10 05:09 Temperature 98.6 F Pulse Rate 78 81 81 Pulse Rate [ Anterior Bilateral Throughout] Pulse Rate [ Apical] Respiratory 18 Rate Respiratory Rate [Anterior Bilateral Throughout] Blood Pressure 158/85 177/101 177/101 O2 Sat by Pulse 98 Oximetry 08/26/20 06:27 Temperature Pulse Rate Pulse Rate [ 75 Anterior Bilateral Throughout] Pulse Rate [ Apical] Respiratory Rate Respiratory 18 Rate [Anterior Bilateral Throughout] Blood Pressure O2 Sat by Pulse Oximetry - General Appearance General appearance: appears stated age EENT: ATNC Neck: no JVD Respiratory: Present: Clear to Ascultation Cardiology: regular Gastrointestinal: normal Integumentary: warm and dry Musculoskeletal: deferred - Lab 08/23/20 14:18 08/24/20 16:15 Most recent lab results Calcium 8.3 mg/dL (8.4-10.2) L 08/24/20 16:15 - Allied health notes Allied health notes reviewed: nursing Medications & Allergies - Medications Allergies/Adverse Reactions: Allergies No Known Allergies Allergy (Unverified 04/23/13 16:35) Home Medications: Home Medications Medication Instructions Recorded Confirmed Last Taken Type Clopidogrel [Plavix] 75 mg PO QDAY #30 tablet NS 05/23/13 08/21/20 Unknown Rx amLODIPine 10 mg PO DAILY tablet 06/25/16 08/21/20 Unknown Rx Budesonide [Pulmicort] 0.5 mg IH Q12HR 08/21/20 08/21/20 Unknown History Cetirizine HCl [Cetirizine 10mg 10 mg PO DAILY 08/21/20 08/21/20 Unknown History chew] Cholecalciferol Vit D3 [Vitamin D3 1,000 mg PO DAILY 08/21/20 08/21/20 Unknown History 1,000 UNIT TAB] Dexamethasone [Decadron] 6 mg PO DAILY 08/21/20 08/21/20 Unknown History Divalproex [Severo Campbell] 500 mg PO BID 08/21/20 08/21/20 Unknown History Finasteride [Proscar] 5 mg PO DAILY 08/21/20 08/21/20 Unknown History Hydralazine HCl 50 mg PO TID 08/21/20 08/21/20 Unknown History Memantine [Namenda] 5 mg PO BID 08/21/20 08/21/20 Unknown History Montelukast [Singulair] 10 mg PO QPM 08/21/20 08/21/20 Unknown History Multivit,Calc,Mins/Iron/Folic 1 each PO DAILY 08/21/20 08/21/20 Unknown History [Thera-M Caplet] Pravastatin [Pravachol] 40 mg PO HS 08/21/20 08/21/20 Unknown History QUEtiapine [SEROquel] 12.5 mg PO BID 08/21/20 08/21/20 Unknown History Salmeterol Xinafoate [Serevent 50 mcg IH BID 08/21/20 08/21/20 Unknown History Diskus] allopurinoL [Zyloprim] 100 mg PO DAILY 08/21/20 08/21/20 Unknown History cloNIDine [Catapres] 0.2 mg PO BID 08/21/20 08/21/20 Unknown History Active Medications: Generic Name Dose Route Start Last Admin Trade Name Freq PRN Reason Stop Dose Admin Acetaminophen 650 mg 08/20/20 23:26 Acetaminophen 325 Mg Tab PO Q4H PRN Pain MILD(1-3)/Fever >100.5/CARRILLO Albuterol/Ipratropium 1 ampul 08/25/20 20:00 08/26/20 06:26 Ipratropium/Albuterol Sulfate 3 Ml Ampul.Neb IH 1 ampul Q6HRT BROOKE Administration Allopurinol 100 mg 08/26/20 10:00 Allopurinol 100 Mg Tab PO DAILY BROOKE Amlodipine Besylate 5 mg 08/25/20 17:00 08/25/20 20:33 Amlodipine 10 Mg Tab PO 5 mg DAILY BROOKE Administration Benzonatate 100 mg 08/21/20 15:00 08/24/20 20:57 Benzonatate 100 Mg Cap PO 100 mg Q6HR PRN Administration Cough Clonidine HCl 0.1 mg 08/25/20 17:00 08/26/20 03:02 Clonidine 0.2 Mg Tab PO 0.1 mg Q8H BROOKE Administration Clopidogrel Bisulfate 75 mg 08/22/20 10:00 08/25/20 10:18 Clopidogrel 75 Mg Tab PO 75 mg QDAY BROOKE Administration Dextrose 0 ml 08/20/20 23:26 Dextrose 50% In Water (25gm) 50 Ml Syringe IV Q30MIN PRN Hypoglycemia Protocol Donepezil HCl 10 mg 08/22/20 10:00 08/25/20 10:18 Donepezil 10 Mg Tab PO 10 mg QDAY BROOKE Administration Heparin Sodium (Porcine) 5,000 unit 08/21/20 06:00 08/26/20 05:09 Heparin 5,000 Unit/1 Ml Vial SUB-Q 5,000 unit Q8HR BROOKE Administration Hydralazine HCl 10 mg 08/23/20 05:25 08/26/20 05:09 Hydralazine 20 Mg/1 Ml Inj IV 10 mg Q4HR PRN Administration SBP>160 Ceftriaxone Sodium 1 gm in 50 mls @ 100 mls/hr 08/21/20 10:00 08/25/20 10:18 Rocephin/Ns 1 Gm/50 Ml IV 08/27/20 10:29 100 mls/hr Q24HR BROOKE Administration Protocol Insulin Human Lispro 0 unit 08/21/20 07:30 08/25/20 21:48 Insulin Lispro 100 Unit/Ml Vial 3 Ml SUB-Q Not Given ACHS BROOKE Protocol Magnesium Hydroxide 30 ml 08/20/20 23:26 Magnesium Hydroxide (Mom) Oral Liqd Udc PO Q4H PRN Constipation Morphine Sulfate 2 mg 08/20/20 23:26 Morphine 2 Mg/1 Ml Inj IV Q4H PRN Pain, Moderate (4-6) Ondansetron HCl 4 mg 08/20/20 23:26 Ondansetron 4 Mg/2 Ml Inj IV Q8H PRN Nausea And Vomiting Pravastatin Sodium 40 mg 08/25/20 22:00 08/25/20 21:48 Pravastatin 40 Mg Tab PO 40 mg HS BROOKE Administration Sodium Chloride 10 ml 08/21/20 10:00 08/25/20 21:49 Sodium Chloride 0.9% 10 Ml Flush Syringe IV 10 ml BID BROOKE Administration Sodium Chloride 10 ml 08/20/20 23:26 Sodium Chloride 0.9% 10 Ml Flush Syringe IV PRN PRN LINE FLUSH
[2020-08-26] MEDS ORDERED: allopurinoL 100 MG TAB PO SCH (10:00)
[2020-08-26] MEDS: INSULIN LISPRO 100 UNIT/ML VIAL 3 mL SUB-Q SCH ×3 (11:49→22:07)
[2020-08-26] MEDS: hydrALAZINE 25 MG TAB PO SCH ×2 (11:52→22:08)
[2020-08-26] MEDS: amLODIPine 10 MG TAB PO SCH (11:52)
[2020-08-26] MEDS: DONEPEZIL 10 MG TAB PO SCH (11:52)
[2020-08-26] MEDS: CLOPIDOGREL 75 MG TAB PO SCH (11:52)
[2020-08-26] MEDS: cefTRIAXone/NS 1 GM/50 ML 1 GM/50 ML BAG IV SCH (11:53)
--- NOTE | 2020-08-26 13:45 | Discharge Summary ---
Providers - Providers Date of Admission: 08/20/20 21:49 Date of discharge: 08/26/20 Attending physician: DUDLEY SCHULTZ 08/20/20 Consult to Cardiac Rehabilitation [CONS] Routine Reason For Exam: Phase I 08/20/20 23:26 Consult to Dietitian/Nutrition [CONS] Routine Physician Instructions: Reason For Exam: Reason for Consult: Diet education Consult to Physician [CONS] Routine Comment: Consulting Provider: VANDANA TURCIOS Physician Instructions: Reason For Exam: chronic Renal failure 08/21/20 13:07 Speech Therapy Evaluation and Treat [CONS] Routine Reason For Exam: Delayed swallowing of food 08/26/20 09:07 Physical Therapy Evaluation and Treat [CONS] Routine Comment: Reason For Exam: placement Primary care physician: [employer] Hospitalization Condition: Serious Exam - Constitutional Vitals: Temp Pulse Resp BP Pulse Ox 97.5 F L 72 18 163/99 100 08/26/20 08:15 08/26/20 08:15 08/26/20 08:15 08/26/20 08:15 08/26/20 08:15 Plan Activity: fall precautions Weight Bearing Status: Non-Weight Bearing Diet: other (mechanical soft diet) Special Instructions: physical therapy Additional Instructions: BMP in three days Follow up with: PRIMARY CARE, [Primary Care Provider] - 3-5 Days
[2020-08-26 16:53] LABS: Calcium 8.4 mg/dL (8.4-10.2)
[2020-08-26] MEDS: PRAVASTATIN 40 MG TAB PO SCH (22:08)
[2020-08-27] MEDS: INSULIN LISPRO 100 UNIT/ML VIAL 3 mL SUB-Q SCH ×2 (00:51→07:51)
[2020-08-27] MEDS: IPRATROPIUM/ALBUTEROL SULFATE 3 ML AMPUL.NEB IH SCH (03:56)
[2020-08-27] MEDS: cloNIDine 0.2 MG TAB PO SCH (03:59)
[2020-08-27 04:25] VITALS: BP 164/103
[2020-08-27] MEDS: HEPARIN 5,000 UNIT/1 ML VIAL SUB-Q SCH (07:51)
== END 2020-08-27 07:44 ==
LOC: ED 16:36 → 4A 21:49
PROVIDERS: ADMIT Internal Medicine Geriatric Medicine; ATTEND Internal Medicine
DX: R41.82 Altered mental status, unspecified (principal); Z20.828 Contact with and (suspected) exposure to other viral communicable diseases; G93.41 Metabolic encephalopathy; I12.9 Hypertensive chronic kidney disease with stage 1 through stage 4 chronic kidney disease, or unspecified chronic kidney disease; N18.30 Chronic kidney disease, stage 3 unspecified; E87.5 Hyperkalemia; N17.9 Acute kidney failure, unspecified; F01.50 Vascular dementia, unspecified severity, without behavioral disturbance, psychotic disturbance, mood disturbance, and anxiety; N39.0 Urinary tract infection, site not specified; R74.8 Abnormal levels of other serum enzymes; M19.90 Unspecified osteoarthritis, unspecified site; E11.9 Type 2 diabetes mellitus without complications; Z86.73 Personal history of transient ischemic attack (TIA), and cerebral infarction without residual deficits; Z79.02 Long term (current) use of antithrombotics/antiplatelets; Z79.4 Long term (current) use of insulin
CPT/HCPCS: 36415; 70450; 71045; 80048; 80053; 80061; 80307; 81001; 82140; 82962; 84443; 84484; 85025; 85610; 85730; 87076; 87086; 92526; 92610; 93005; 94640; 96361; 96365; 96366; 96372; 96375; 96376; 99285; A9270; G0378; J0360; J0696; J1644; J7030; U0003; 76770; 80320; G0480